=== PATIENT | male | born 1970 | race Caucasian/White ===

== ENCOUNTER → 2016-12-29 | Outpatient (CLI) | payer OTHER ==
[~2016-12-29] MED LIST: BETA0.1C3 TOP; CLBCRM30 EXT; ENAL5TAB83 PO; LORA-741 PO; MINO100C22 PO; MONT1TAB3 PO; NRN600 PO; PRED10TA PO; RTN100 PO; SILD50TA PO; SUMA50TA15 PO; TRMCR130WC TOP; TRV PO; WLLSR/300 PO; [UNRECOGNIZED DRUG - OTHER] TOP
== END | disposition home or self-care (01) ==
LOC: C.RDSM 15:18
PROVIDERS: ATTEND Physical Medicine & Rehabilitation Sports Medicine
DX: M25.552 Pain in left hip (principal)

== ENCOUNTER → 2017-05-25 | Outpatient (CLI) | payer OTHER | END | disposition home or self-care (01) | LOC: C.RDSM 13:25 | PROVIDERS: ATTEND Physical Medicine & Rehabilitation Sports Medicine | DX: M25.551 Pain in right hip (principal) ==

== ENCOUNTER → 2018-01-13 | Outpatient (CLI) | payer OTHER | LOC: C.LABSPEC 17:40 | PROVIDERS: ATTEND Nurse Practitioner Adult Health | DX: N50.819 Testicular pain, unspecified (principal) ==

== ENCOUNTER → 2018-02-22 | Outpatient (CLI) | payer OTHER | END | disposition home or self-care (01) | LOC: C.RDSM 10:02 | PROVIDERS: ATTEND Physical Medicine & Rehabilitation Sports Medicine | DX: M87.051 Idiopathic aseptic necrosis of right femur (principal); Z96.641 Presence of right artificial hip joint; M25.512 Pain in left shoulder ==

== ENCOUNTER 2022-03-04 17:17 | Inpatient (IN) ==
[2022-03-04] MEDS ORDERED: FAMOTIDINE 20MG IV PUSH 20 MG/5 ML SYR IV STA (17:50)
[2022-03-04] MEDS ORDERED: PANTOprazole 40 MG in SYRINGE 0 ML IV ONE (17:50)
[2022-03-04] MEDS ORDERED: SODIUM CHLORIDE 0.9% 1000ML 500 ML IV ONE (17:50)
--- NOTE | 2022-03-04 18:09 | Emergency Department Note ---
Impression & Plan GIB (gastrointestinal bleeding), Anemia, Thrombocytopenia ED Provider Note NAME: MELANIA ZEPEDA AGE: 51 SEX: M : 1970 ARRIVES VIA: Walk-In INFORMANT: Patient, ED PROVIDER(S): Stuart Sarmiento DO CHIEF COMPLAINT: GI bleeding HPI: The patient is a 51-year-old male who presented to the emergency department for an evaluation of GI bleeding. The patient has a history of watermelon stomach. He does take medications for stomach acid. He is also noticed black stool and maroon stool recently. He is been having shortness of breath and generalized weakness. He did have a blood transfusion at [facility] yesterday. He states at that time his hemoglobin was already very low. He is noticed ongoing symptoms. He has been compliant with all of his usual medications. He denies having any chest pain. He denies having any recent trauma. He also has a history of HIV positivity as well as thrombocytopenia. He also has a history of lymphoma. He is receiving chemotherapy and has a port in his right chest. The patient states his symptoms are moderate. He is also noticed some loose bowel movements as well. ROS: See above HPI for pertinent positives & negatives. A total of 10 systems reviewed and were otherwise negative. PAST MEDICAL HISTORY: See Below PAST SURGICAL HISTORY: See Below FAMILY HISTORY: See Below SOCIAL HISTORY: See Below HOME MEDICATIONS: See Below ALLERGIES: See Below VITALS: See Below PHYSICAL EXAMINATION: GENERAL: Patient is awake alert in no acute distress patient is resting comfortably and showing no signs of anxiety EYES: The conjunctivae are clear. The pupils are round and reactive. EARS, NOSE, MOUTH AND THROAT: The nose is without any evidence of any deformity. Mucous membranes are moist. Tongue is midline. NECK: The neck is nontender and supple. RESPIRATORY: Normal respiratory effort is noted there is no evidence of wheezing rhonchi or rales CARDIOVASCULAR: Tachycardic rate with regular rhythm was noted. No definite murmur was noted auscultation. GASTROINTESTINAL: The abdomen was mildly distended and diffusely tender. There is no guarding rigidity. MUSCULOSKELETAL/EXTREMITIES: There is no evidence of gross deformity full range of motion is noted in the hips and shoulders. SKIN: The skin is warm and dry. Trace pedal edema was noted bilaterally. NEUROLOGIC: Patient is awake alert and oriented x3 MEDICAL DECISION MAKING: The patient is a 51-year-old male has a history of lymphoma as well as thro mbocytopenia and GI bleeding. The patient presented to the emergency department because of generalized weakness. He was tachycardic and had borderline hypotension. The patient was noted to have severe anemia. I discussed the patient's laboratory and radiographic studies with him. He was also found to have thrombocytopenia. He was treated with IV fluids as well as blood transfusion ordered in the emergency department. Blood transfusion was difficult to obtain given the patient's type and cross. I discussed patient's condition with the on-call [facility] hospitalist group. They have agreed to evaluate the patient in the emergency department for further management and disposition. Triage Nursing notes reviewed. Prior medical records reviewed Vital Signs: reviewed and remarkable for tachycardia and intermittent hypotension. Differential diagnosis: Infection, dehydration, metabolic abnormality, hypo/hyperglycemia, electrolyte disturbance, anemia, hypoxia, cardiac sources, intracerebral event, toxicologic, neurologic, as well as other pathologies. ER treatment provided: See below Diagnostics interpreted by me: ECG: EKG was obtained in the emergency department. My interpretation is sinus tachycardia at 112 bpm. There is no ectopy. There is no acute ST segment abnormalities noted. No previous tracing was available. Cardiac Monitoring: An order was placed for continuous cardiac monitoring. The monitor shows a rate of 111 bpm with sinus tachycardia. Laboratory studies: As stated above and show below. Imaging studies: See below Consultation(s): I discussed this case with Alexandra Cooper. I discussed this case with Dr Judd ED COURSE: Procedures: none Critical Care: I have personally spent greater than 45 minutes of critical care time in the direct management of this patient. This includes bedside care, interpretation of diagnostic studies, and testing, discussion with consultants, patient, and family members, and other required patient management activities. This 45 minutes is in excess of all separately billable procedures. Past Med/Surg History Medical History Anemia BLOOD TRANSFUSIONS>LAST 01/20/22 Anxiety and depression Asthma NO RECENT INHALER PRN USE Avascular necrosis of bone of left hip BPH (benign prostatic hyperplasia) Cervical radiculopathy Cervical stenosis of spinal canal Cirrhosis Diabetes mellitus, type 2 Fatty liver GAVE (gastric antral vascular ectasia) GERD (gastroesophageal reflux disease) High cholesterol History of COVID-19 11/2021>HOSPITALIZED AT [facility] FOR NON-COVID SYMPTOMS HIV (human immunodeficiency virus infection) Hodgkin lymphoma Hx of bladder cancer Hydrocele Hypercholesterolemia Hypertension Lumbar facet joint syndrome Lumbar radiculopathy Migraine Neuropathy Portal hypertensive gastropathy Psoriasis Sacroiliitis Spleen enlarged Thrombocytopenia Surgical History H/O lymph node biopsy History of bilateral carpal tunnel release History of bladder surgery BLADDER TUMOR REMOVED History of bone marrow biopsy History of cholecystectomy History of colonoscopy History of cystoscopy History of esophagogastroduodenoscopy (EGD) History of right hip replacement History of vascular access device POWER PORT FOR CHEMO TX (CURRENT TX, SCHEDULED 01/28/22) Family History Mother Diabetes Lung disease Hypertension Father Gout Hypertension Brother Hypertension Other No family history of adverse response to anesthesia Social History Smoking Status: Former smoker Tobacco Type: Cigarettes Age Started Using Tobacco: 13; Age Quit Using Tobacco: 45; Years Smoked: 1; Cigarettes Per Day: 1 ppd; Smoking End Date: 2015; Second Hand Exposure: Yes ( A CHILD); Hx Alcohol Use: No Hx Substance Use: Yes Substance Use Type Other:: Has previously overdosed on opioid medications Preferred Language: Sami Communication Ability: Effective Visual Impairment: No Limitations Hearing Ability: Normal Integration Specialist Required: No Beliefs That Will Affect Care: None marital status: single marital status details: homosexual Current Living Situation: Alone current occupational status: disabled Other Information That Helps Us Care for You: No Feels Safe at Home: Yes Safety Concerns: Feels Safe At This Time Assistive Devices: Cane, Glasses and Walker Allergies Allergies Allergy/AdvReac Type Severity Reaction Status Date / Time Penicillins Allergy Intermediate HIVES Verified 03/04/22 19:04 adhesive tape AdvReac Mild skin Verified 03/04/22 19:04 irritation Home Meds Home Medications Medication Instructions Recorded Confirmed atorvastatin 10 mg tablet (Lipitor) 10 mg PO QPM 04/06/19 03/04/22 betamethasone valerate 0.1 % 1 appln TOP DAILY PRN 04/06/19 03/04/22 topical cream clindamycin phosphate 1 % topical 1 appln TOP DAILY PRN 04/06/19 03/04/22 swab clobetasol 0.05 % shampoo 1 appln TOP DAILY PRN 04/06/19 03/04/22 clobetasol 0.05 % topical gel 1 appln TOP BID PRN 04/06/19 03/04/22 lisinopril 5 mg tablet 5 mg PO QAM 04/06/19 03/04/22 metformin 500 mg tablet 500 mg PO QAM tab 04/06/19 03/04/22 sertraline 100 mg tablet (Zoloft) 100 mg PO QAM 04/06/19 03/04/22 medical marijuana 1 dose PO UD PRN 06/19/20 03/04/22 dolutegravir 50 mg-lamivudine 300 1 tab PO QAM 03/15/21 03/04/22 mg tablet (Dovato) pantoprazole 40 mg tablet,delayed 40 mg PO BID tab 03/15/21 03/04/22 release (Protonix) acyclovir 400 mg tablet 400 mg PO BID 01/23/22 03/04/22 albuterol sulfate 90 mcg/actuation 2 inh INHALATION QID PRN 01/23/22 03/04/22 aerosol inhaler oxybutynin chloride 10 mg 10 mg PO AMPM 01/23/22 03/04/22 tablet,extended release 24 hr ascorbic acid (vitamin C) 500 mg 500 mg PO DAILY 03/04/22 03/04/22 tablet (Vitamin C) azithromycin 500 mg tablet 500 mg PO DAILY 03/04/22 03/04/22 folic acid 1 mg tablet 1 mg PO DAILY 03/04/22 03/04/22 gabapentin 600 mg tablet 600 mg PO TID 03/04/22 03/04/22 ipratropium 0.5 mg-albuterol 3 mg 0 ml INHALATION QAM 03/04/22 03/04/22 (2.5 mg base)/3 mL nebulization soln magnesium 250 mg tablet 250 mg PO DAILY 03/04/22 03/04/22 metformin 500 mg tablet 1,000 mg PO QPM 03/04/22 03/04/22 ondansetron HCl 8 mg tablet 8 mg PO BID PRN 03/04/22 03/04/22 Results & Data (ED) Vital Signs Vital Signs - 24 hr 03/04/22 17:20 03/04/22 18:00 03/04/22 18:03 Temperature 37.0 C Temperature Source Oral Pulse Rate 120 H 123 H Pulse Rate [Apical] Pulse Rhythm Regular Respiratory Rate 16 20 Respiratory Effort / Characteristics Respiratory Pattern Blood Pressure 116/59 L Blood Pressure [Right Arm] 111/48 L Blood Pressure Mean 78 Blood Pressure Mean [Right Arm] 69 Blood Pressure Position [Right Arm] Pulse Oximetry 99 98 Oxygen Delivery Method Room Air Room Air Sepsis Recent Fever Within 48 Hours No Sepsis New/Unexplained Change in Mental Status No Sepsis Action Taken by Nursing No Action Required 03/04/22 19:06 Temperature Temperature Source Pulse Rate Pulse Rate [Apical] 107 H Pulse Rhythm Respiratory Rate 21 Respiratory Effort / Characteristics Non-Labored Respiratory Pattern Regular Blood Pressure Blood Pressure [Right Arm] 115/54 L Blood Pressure Mean Blood Pressure Mean [Right Arm] 74 Blood Pressure Position [Right Arm] Lying Pulse Oximetry 98 Oxygen Delivery Method Sepsis Recent Fever Within 48 Hours Sepsis New/Unexplained Change in Mental Status Sepsis Action Taken by [facility] Medications Current Medication List: was personally reviewed by me Laboratory Data Attestation: I reviewed the patient's lab results. Result diagrams: 03/04/22 17:49 03/04/22 17:49 Lab Results 03/04/22 03/04/22 03/04/22 Range/Units 17:49 17:49 17:49 WBC 2.72 L (4.8-10.8) K/uL RBC 1.81 L (4.7-6.1) M/uL Hgb 5.6 L* (14.0-18.0) g/dL Hct 16.6 L* (42-52) % MCV 91.7 (80-100) fL MCH 30.9 (25-34) pg MCHC 33.7 (32-36) g/dL RDW Std Deviation 56.9 H (36.4-46.3) fL RDW Coeff of Valentin 17.7 H (11.5-14.5) % Plt Count 52 L (130-400) K/uL MPV 10.7 H (7.4-10.4) fL Absolute Nucleated RBC 0.05 H (0-0) K/uL Nucleated RBC % (auto) 1.7 % Neutrophils % (Manual) 59.2 % Lymphocytes % (Manual) 21.7 % Monocytes % (Manual) 8.7 % Eosinophils % (Manual) 3.5 % Basophils % (Manual) 1.7 % Metamyelocytes % (Man) 2.6 % Myelocytes % (Man) 2.6 % Neutrophils # (Manual) 1.61 (1.4-6.5) K/uL Total Absolute Neuts 1.61 (1.4-6.5) K/uL Lymphocytes # (Manual) 0.59 L (1.2-3.4) K/uL Total Abs Lymphocytes 0.59 L (1.2-3.4) K/uL Monocytes # (Manual) 0.24 (0.11-0.59) K/uL Eosinophils # (Manual) 0.10 (0-0.5) K/uL Basophils # (Manual) 0.05 (0-0.2) K/uL Metamyelocytes # (Man) 0.07 H (0-0) K/uL Myelocytes # (Manual) 0.07 H (0-0) K/uL Toxic Granulation 1+ Platelet Estimate Decreased L (Normal) Tear Drop Cells 1+ PT 14.0 H (9.0-12.0) Seconds INR 1.3 H (0.9-1.1) APTT 31.3 H (21.0-31.0) Seconds PTT Ratio 1.1 Sodium (136-145) mmol/L Potassium (3.5-5.1) mmol/L Chloride (98-107) mmol/L Carbon Dioxide (21-32) mmol/L Anion Gap (3-11) BUN (6-23) mg/dl Creatinine (0.6-1.4) mg/dl Est Cr Clr Drug Dosing ml/min Est GFR ( Amer) ml/min Est GFR (Non-Af Amer) ml/min BUN/Creatinine Ratio (10-20) Glucose (70-99(Fasting)) mg/dl Calcium (8.5-10.1) mg/dl Magnesium (1.7-2.4) mg/dl Total Bilirubin (0.2-1.0) mg/dl AST (13-39) U/L ALT (7-52) U/L Alkaline Phosphatase (34-104) U/L Troponin I (0-0.04) ng/ml Total Protein (6.0-8.3) gm/dl Albumin (3.4-5.0) gm/dl Globulin (2.5-4.0) gm/dl Albumin/Globulin Ratio (0.9-2) TSH (0.300-4.500) uIu/ml Urine Color Urine Appearance (Clear) Urine pH (4.5-7.5) Ur Specific [place] (1.000-1.030) Urine Protein (Negative) Urine Glucose (UA) (Negative) Urine Ketones (Negative) Urine Blood (Negative) Urine Nitrite (Negative) Urine Bilirubin (Negative) Urine Urobilinogen (Negative) Ur Leukocyte Esterase (Negative) Urine WBC (Auto) (0-5) /hpf Urine RBC (Auto) (0-4) /hpf U Hyaline Cast (Auto) (0-5) /lpf U Epithel Cells (Auto) (0-5) /lpf Urine Bacteria (Auto) (Negative) SARS-CoV-2, RNA, NAAT (NEGATIVE) Blood Type O Positive Blood Type Recheck Antibody Screen NEGATIVE Crossmatch See Detail 03/04/22 03/04/22 03/04/22 Range/Units 17:49 17:49 17:49 WBC (4.8-10.8) K/uL RBC (4.7-6.1) M/uL Hgb (14.0-18.0) g/dL Hct (42-52) % MCV (80-100) fL MCH (25-34) pg MCHC (32-36) g/dL RDW Std Deviation (36.4-46.3) fL RDW Coeff of Valentin (11.5-14.5) % Plt Count (130-400) K/uL MPV (7.4-10.4) fL Absolute Nucleated RBC (0-0) K/uL Nucleated RBC % (auto) % Neutrophils % (Manual) % Lymphocytes % (Manual) % Monocytes % (Manual) % Eosinophils % (Manual) % Basophils % (Manual) % Metamyelocytes % (Man) % Myelocytes % (Man) % Neutrophils # (Manual) (1.4-6.5) K/uL Total Absolute Neuts (1.4-6.5) K/uL Lymphocytes # (Manual) (1.2-3.4) K/uL Total Abs Lymphocytes (1.2-3.4) K/uL Monocytes # (Manual) (0.11-0.59) K/uL Eosinophils # (Manual) (0-0.5) K/uL Basophils # (Manual) (0-0.2) K/uL Metamyelocytes # (Man) (0-0) K/uL Myelocytes # (Manual) (0-0) K/uL Toxic Granulation Platelet Estimate (Normal) Tear Drop Cells PT (9.0-12.0) Seconds INR (0.9-1.1) APTT (21.0-31.0) Seconds PTT Ratio Sodium 137 (136-145) mmol/L Potassium 4.0 (3.5-5.1) mmol/L Chloride 109 H (98-107) mmol/L Carbon Dioxide 22 (21-32) mmol/L Anion Gap 6 (3-11) BUN 15 (6-23) mg/dl Creatinine 0.98 (0.6-1.4) mg/dl Est Cr Clr Drug Dosing 93.1 ml/min Est GFR ( Amer) 101.6 ml/min Est GFR (Non-Af Amer) 87.7 ml/min BUN/Creatinine Ratio 15.3 (10-20) Glucose 152 H (70-99(Fasting)) mg/dl Calcium 7.6 L (8.5-10.1) mg/dl Magnesium 1.6 L (1.7-2.4) mg/dl Total Bilirubin 1.1 H (0.2-1.0) mg/dl AST 18 (13-39) U/L ALT 14 (7-52) U/L Alkaline Phosphatase 80 (34-104) U/L Troponin I < 0.03 (0-0.04) ng/ml Total Protein 4.3 L (6.0-8.3) gm/dl Albumin 2.8 L (3.4-5.0) gm/dl Globulin 1.5 L (2.5-4.0) gm/dl Albumin/Globulin Ratio 1.9 (0.9-2) TSH 2.428 (0.300-4.500) uIu/ml Urine Color Urine Appearance (Clear) Urine pH (4.5-7.5) Ur Specific [place] (1.000-1.030) Urine Protein (Negative) Urine Glucose (UA) (Negative) Urine Ketones (Negative) Urine Blood (Negative) Urine Nitrite (Negative) Urine Bilirubin (Negative) Urine Urobilinogen (Negative) Ur Leukocyte Esterase (Negative) Urine WBC (Auto) (0-5) /hpf Urine RBC (Auto) (0-4) /hpf U Hyaline Cast (Auto) (0-5) /lpf U Epithel Cells (Auto) (0-5) /lpf Urine Bacteria (Auto) (Negative) SARS-CoV-2, RNA, NAAT (NEGATIVE) Blood Type Blood Type Recheck O Positive Antibody Screen Crossmatch 03/04/22 03/04/22 Range/Units 18:29 18:48 WBC (4.8-10.8) K/uL RBC (4.7-6.1) M/uL Hgb (14.0-18.0) g/dL Hct (42-52) % MCV (80-100) fL MCH (25-34) pg MCHC (32-36) g/dL RDW Std Deviation (36.4-46.3) fL RDW Coeff of Valentin (11.5-14.5) % Plt Count (130-400) K/uL MPV (7.4-10.4) fL Absolute Nucleated RBC (0-0) K/uL Nucleated RBC % (auto) % Neutrophils % (Manual) % Lymphocytes % (Manual) % Monocytes % (Manual) % Eosinophils % (Manual) % Basophils % (Manual) % Metamyelocytes % (Man) % Myelocytes % (Man) % Neutrophils # (Manual) (1.4-6.5) K/uL Total Absolute Neuts (1.4-6.5) K/uL Lymphocytes # (Manual) (1.2-3.4) K/uL Total Abs Lymphocytes (1.2-3.4) K/uL Monocytes # (Manual) (0.11-0.59) K/uL Eosinophils # (Manual) (0-0.5) K/uL Basophils # (Manual) (0-0.2) K/uL Metamyelocytes # (Man) (0-0) K/uL Myelocytes # (Manual) (0-0) K/uL Toxic Granulation Platelet Estimate (Normal) Tear Drop Cells PT (9.0-12.0) Seconds INR (0.9-1.1) APTT (21.0-31.0) Seconds PTT Ratio Sodium (136-145) mmol/L Potassium (3.5-5.1) mmol/L Chloride (98-107) mmol/L Carbon Dioxide (21-32) mmol/L Anion Gap (3-11) BUN (6-23) mg/dl Creatinine (0.6-1.4) mg/dl Est Cr Clr Drug Dosing ml/min Est GFR ( Amer) ml/min Est GFR (Non-Af Amer) ml/min BUN/Creatinine Ratio (10-20) Glucose (70-99(Fasting)) mg/dl Calcium (8.5-10.1) mg/dl Magnesium (1.7-2.4) mg/dl Total Bilirubin (0.2-1.0) mg/dl AST (13-39) U/L ALT (7-52) U/L Alkaline Phosphatase (34-104) U/L Troponin I (0-0.04) ng/ml Total Protein (6.0-8.3) gm/dl Albumin (3.4-5.0) gm/dl Globulin (2.5-4.0) gm/dl Albumin/Globulin Ratio (0.9-2) TSH (0.300-4.500) uIu/ml Urine Color Dark Yellow Urine Appearance Clear (Clear) Urine pH 5.5 (4.5-7.5) Ur Specific [place] 1.020 (1.000-1.030) Urine Protein Negative (Negative) Urine Glucose (UA) Negative (Negative) Urine Ketones Trace H (Negative) Urine Blood Negative (Negative) Urine Nitrite Negative (Negative) Urine Bilirubin Negative (Negative) Urine Urobilinogen Negative (Negative) Ur Leukocyte Esterase Trace H (Negative) Urine WBC (Auto) 1-5 (0-5) /hpf Urine RBC (Auto) 0-4 (0-4) /hpf U Hyaline Cast (Auto) 1-5 (0-5) /lpf U Epithel Cells (Auto) 0-5 (0-5) /lpf Urine Bacteria (Auto) Negative (Negative) SARS-CoV-2, RNA, NAAT NEGATIVE (NEGATIVE) Blood Type Blood Type Recheck Antibody Screen Crossmatch Administered Medications Octreotide Acetate 500 mcg/ (Dextrose) 105 mls @ 10.5 mls/hr IV .Q10H MARILYN Stop: 04/03/22 19:44 Last Admin: 03/04/22 20:33 Dose: 50 mcg/hr, 10.5 mls/hr Documented by: [id number] Pantoprazole Sodium 40 mg/ (Dextrose) 100 mls @ 20 mls/hr IV Q5H MARILYN Stop: 04/03/22 19:44 Last Admin: 03/04/22 20:28 Dose: 8 mg/hr, 20 mls/hr Documented by: [id number] Discontinued Medications Pantoprazole Sodium 40 mg/ (Syringe) 10 mls @ 5 mls/min IV NOW ONE Stop: 03/04/22 17:51 Last Admin: 03/04/22 18:24 Dose: 5 mls/min Documented by: [id number] Famotidine (Pepcid 20mg Iv Push) 20 mg in 5 mls @ 2.5 mls/min IV NOW STA Stop: 03/04/22 17:51 Last Admin: 03/04/22 18:24 Dose: 2.5 mls/min Documented by: [id number] Sodium Chloride (Nss 1000ml) 500 mls @ 999 mls/hr IV .Q31M ONE Stop: 03/04/22 18:20 Last Infusion: 03/04/22 18:45 Dose: 0 mls/hr Documented by: [id number] Admin: 03/04/22 18:05 Dose: 999 mls/hr Documented by: [id number] Octreotide Acetate (Octreotide Bolus From Bag) 50 mcg IV ONE ONE Stop: 03/04/22 19:46 Last Admin: 03/04/22 20:35 Dose: 50 mcg Documented by: [id number] Promethazine HCl (Promethazine 6.25 Mg/50.25 Ml Nss) Confirm Administered Dose 6.25 mg IV .STK-MED ONE Stop: 03/04/22 20:17 Last Admin: 03/04/22 20:21 Dose: 6.25 mg Documented by: [id number] Imaging Data Radiologist's Impression: Chest X-Ray 03/04/22 17:50 XR chest 1V portable CLINICAL HISTORY: weakness TECHNIQUE: Single frontal radiograph of the chest was obtained. Comparison: None available at the time of this dictation. FINDINGS: No lines and tubes are seen. The cardiomediastinal silhouette is normal. The lungs are clear. No evidence of pleural effusion or pneumothorax. IMPRESSION: No acute chest disease. ACT 112: Negative or not required by law. Electronically signed by: Alvarado Keith M.D. 03/04/2022 6:25 PM KUB X-Ray 03/04/22 17:50 XR KUB/Abdomen 1 view CLINICAL HISTORY: Pain, weakness TECHNIQUE: 1 view of the abdomen was obtained. Comparison: None available at the time of this dictation. FINDINGS: Lung bases are unremarkable. Right total hip arthroplasty is seen. The bowel gas pattern is nonobstructive. A moderate amount of stool is noted within the large bowel. IMPRESSION: Nonobstructive bowel gas pattern. ACT 112: Negative or not required by law. Electronically signed by: Alvarado Keith M.D. 03/04/2022 6:25 PM Discharge Plan Visit Data Chief Complaint: Shortness of Breath/Dyspnea Stated Complaint: SOB, FATIGUE, STOOL IN BLOOD, ED Provider: Stuart Sarmiento Discharge Problem: GIB (gastrointestinal bleeding), Anemia, Thrombocytopenia Patient Disposition: Admitted As Inpatient Discharge Instructions Interventions: ED Discharge Assessment Last Done: 03/04/22 20:43 Discharge Problem: GIB (gastrointestinal bleeding) Qualifiers: GI bleed type/associated pathology: unspecified gastrointestinal hemorrhage type Qualified Code(s): K92.2 - Gastrointestinal hemorrhage, unspecified Anemia Qualifiers: Anemia type: unspecified type Qualified Code(s): D64.9 - Anemia, unspecified
[2022-03-04] MEDS ORDERED: SODIUM CHLORIDE 0.9% 250 ML IV PRN ×2 (18:10→19:33)
[2022-03-04 18:20] LABS: INR 1.3 (0.9-1.1); Partial Thromboplastin Ratio 1.1; Partial Thromboplastin Time 31.3 Seconds (21.0-31.0)
[2022-03-04 18:22] LABS: Troponin I < 0.03 ng/ml (0-0.04)
--- NOTE | 2022-03-04 18:26 | XRay Report ---
XR chest 1V portable CLINICAL HISTORY: weakness TECHNIQUE: Single frontal radiograph of the chest was obtained. Comparison: None available at the time of this dictation. FINDINGS: No lines and tubes are seen. The cardiomediastinal silhouette is normal. The lungs are clear. No evid ence of pleural effusion or pneumothorax. IMPRESSION: No acute chest disease. ACT 112: Negative or not required by law. Electronically signed by: Alvarado Keith M.D. 03/04/2022 6:25 PM
--- NOTE | 2022-03-04 18:26 | XRay Report ---
XR KUB/Abdomen 1 view CLINICAL HISTORY: Pain, weakness TECHNIQUE: 1 view of the abdomen was obtained. Comparison: None available at the time of this dictation. FINDINGS: Lung bases are unremarkable. Right total hip arthroplasty is seen. The bowel gas pattern is nonobstru ctive. A moderate amount of stool is noted within the large bowel. IMPRESSION: Nonobstructive bowel gas pattern. ACT 112: Negative or not required by law. Electronically signed by: Alvarado Keith M.D. 03/04/2022 6:25 PM
[2022-03-04 18:28] LABS: Alanine Aminotransferase 14 U/L (7-52); Albumin Globulin Ratio 1.9 (0.9-2); Albumin Level 2.8 gm/dl (3.4-5.0); Alkaline Phosphatase 80 U/L (34-104); Anion Gap 6 (3-11); Aspartate Aminotransferase 18 U/L (13-39); BUN Creatinine Ratio 15.3 (10-20); Bilirubin,Total 1.1 mg/dl (0.2-1.0); Blood Urea Nitrogen 15 mg/dl (6-23); Calcium 7.6 mg/dl (8.5-10.1); Carbon Dioxide 22 mmol/L (21-32); Chloride 109 mmol/L (98-107); Creatinine Clr Calc Pharmacy 93.1 ml/min; Est GFR (African American) 101.6 ml/min; Est GFR (Non-African American) 87.7 ml/min; Globulin 1.5 gm/dl (2.5-4.0); Glucose 152 mg/dl (70-99(Fasting)); Magnesium 1.6 mg/dl (1.7-2.4); Sodium 137 mmol/L (136-145); Total Protein 4.3 gm/dl (6.0-8.3)
[2022-03-04 18:36] LABS: ALC (manual) 0.59 K/uL (1.2-3.4); ANC (manual) 1.61 K/uL (1.4-6.5); Basophils # (manual) 0.05 K/uL (0-0.2); Basophils % (manual) 1.7 %; Eosinophils % (manual) 3.5 %; Hematocrit (blood only) 16.6 % (42-52); Hemoglobin 5.6 g/dL (14.0-18.0); Lymphocytes # (manual) 0.59 K/uL (1.2-3.4); Lymphocytes % (manual) 21.7 %; Mean Corpuscular Hemoglobin 30.9 pg (25-34); Mean Corpuscular Hgb Conc 33.7 g/dL (32-36); Mean Corpuscular Volume 91.7 fL (80-100); Mean Platelet Volume 10.7 fL (7.4-10.4); Metamyelocytes # (manual) 0.07 K/uL (0-0); Metamyelocytes % (manual) 2.6 %; Monocytes # (manual) 0.24 K/uL (0.11-0.59); Monocytes % (manual) 8.7 %; Myelocytes # (manual) 0.07 K/uL (0-0); Myelocytes % (manual) 2.6 %; Neutrophils # (manual) 1.61 K/uL (1.4-6.5); Neutrophils % (manual) 59.2 %; Nucleated RBC # (auto) 0.05 K/uL (0-0); Nucleated RBC % (auto) 1.7 %; Platelet Count 52 K/uL (130-400); Platelet Estimate Decreased (Normal); RDW Coefficient of Variation 17.7 % (11.5-14.5); RDW Standard Deviation 56.9 fL (36.4-46.3); Red Blood Count 1.81 M/uL (4.7-6.1); Tear Drop Cells 1+; Toxic Granulation 1+; White Blood Count 2.72 K/uL (4.8-10.8)
[2022-03-04 19:01] LABS: Appearance Urine Clear (Clear); Bacteria Urine Automated Negative (Negative); Bilirubin Urine Negative (Negative); Blood Urine Negative (Negative); Color Urine Dark Yellow; Epithelial Cell Urine Auto 0-5 /lpf (0-5); Glucose Urine UA Negative (Negative); Ketones Urine Trace (Negative); Leukocyte Esterase Urine Trace (Negative); Nitrite Urine Negative (Negative); Protein Urine Negative (Negative); RBC Urine Automated 0-4 /hpf (0-4); Urobilinogen Urine Negative (Negative); pH Urine 5.5 (4.5-7.5)
[2022-03-04] MEDS ORDERED: PROMETHAZINE HCL 6.25 MG in SODIUM CHLORIDE 0.9% 50 ML IV PRN (19:30)
[2022-03-04] MEDS ORDERED: OCTREOTIDE ACETATE 50 MCG in SYRINGE 9.5 ML IV STA (19:35)
[2022-03-04] MEDS ORDERED: STAT IV STA (19:35)
[2022-03-04] MEDS ORDERED: OCTREOTIDE BOLUS FROM BAG IV ONE (19:45)
[2022-03-04] MEDS ORDERED: PROMETHAZINE 6.25 MG/50.25 ML NSS IV ONE (20:16)
[2022-03-04] MEDS: PANTOprazole 40 MG in DEXTROSE 5% 100 ML IV SCH (20:28)
[2022-03-04] MEDS: OCTREOTIDE ACETATE 500 MCG in DEXTROSE 5% 100 ML IV SCH (20:33)
--- NOTE | 2022-03-04 21:01 | History & Physical Report ---
Date of Service March 04, 2022 Assessment & Plan (1) GIB (gastrointestinal bleeding): (2) Acute blood loss anemia: (3) GAVE (gastric antral vascular ectasia): (4) Portal hypertensive gastropathy: (5) Thrombocytopenia: (6) Cirrhosis: Plan: Admit to telemetry Patient presenting from home with reports of generalized weakness and fatigue, melena Patient reports chronic anemia for the past 2 years intermittently requiring blood transfusions. Recently diagnosed with cirrhosis and underwent EGD on 01/29/2022 showing Gastric antral vascular ectasia with bleeding treated with argon plasma coagulation (APC), Portal hypertensive gastropathy with bleeding treated with argon plasma coagulation (APC). Patient reports having weekly CBCs and yesterday had a hemoglobin of 5.1. Patient reports he received 2 unit PRBC and iron infusion at [facility]. Follows with Dr. Donovan with [facility] In the ED, Hgb 5.6, patient mildly tachycardic, BP stable. Platelets 52K-no indication for transfusion at this time Received IV famotidine, IV Protonix in the ED Transfuse 2 unit PRBC, placed to on hold. Per blood bank, they discussed patient's transfusion history with [facility]. Patient has been receiving irradiated blood product. Dr. Paz discussed with Dr. Cardenas -recommends PPI and octreotide drips. N.p.o. after midnight. EGD tomorrow, possible transfer to tertiary care center for evaluation for TIPS procedure (7) Prolonged QT interval: Plan: Borderline, QTC 499 Daily EKG (8) Hodgkin lymphoma: Plan: Diagnosed August 2021, completed chemotherapy on 02/25/2022 per patient Follows with Dr. Perez in [place] Continue prophylactic azithromycin and acyclovir (9) HIV (human immunodeficiency virus infection): Plan: Follows with Dr. Ramirez with [facility] Continue Dovato (10) Diabetes mellitus, type 2: Plan: Unknown HgbA1c Hold oral agents, utilize NovoLog per protocol while hospitalized A1c with a.m. labs (11) Hypertension: Plan: Hold lisinopril due to borderline low BPs (12) DVT prophylaxis: Plan: SCDs due to GI bleeding History of Present Illness Chief Complaint: Weakness, fatigue Primary Care Provider: Candida Estrella DO 51-year-old male with PMH HIV, Hodgkin's lymphoma, avascular necrosis, bladder cancer s/p tumor resection, cirrhosis, portal hypertensive gastropathy, GAVE, and other problems listed below who presents to the ED for evaluation of weakness and fatigue. Patient reports a history of requiring blood transfusions over the past 2 years. Diagnosed with Hodgkin's lymphoma August 2021 and completed chemotherapy on 02/25/2022. Patient also recently diagnosed with cirrhosis and underwent EGD on 01/29/2022 showing Gastric antral vascular ectasia with bleeding treated with argon plasma coagulation (APC), Portal hypertensive gastropathy with bleeding treated with argon plasma coagulation (APC). Patient reports having weekly CBCs and yesterday had a hemoglobin of 5.1. Patient reports he received 2 unit PRBC and iron infusion at [facility]. Patient reports that for the past 1 month he has been having melena and dark tarry stools. Today, patient reports multiple episodes of diarrhea with maroon- colored stool and blood clots at times. He reports epigastric abdominal pain and nausea. No vomiting. Denies chest pain or shortness of breath. No light headedness, dizziness, diaphoresis, syncopal events. Denies any other recent illnesses, fevers, chills. No urinary symptoms. In the ED, labs show Hgb 5.6. Patient is mildly tachycardic, otherwise hemodynamically stable. Patient was given IV famotidine, IV Protonix 40 mg, IVF. He was also typed and crossed for blood. Allergies Allergy/AdvReac Type Severity Reaction Status Date / Time Penicillins Allergy Intermediate HIVES Verified 03/04/22 19:04 adhesive tape AdvReac Mild skin Verified 03/04/22 19:04 irritation Home Medications Medication Instructions Recorded Confirmed Type atorvastatin 10 mg tablet (Lipitor) 10 mg PO QPM 04/06/19 03/04/22 History betamethasone valerate 0.1 % 1 appln TOP DAILY PRN 04/06/19 03/04/22 History topical cream clindamycin phosphate 1 % topical 1 appln TOP DAILY PRN 04/06/19 03/04/22 History swab clobetasol 0.05 % shampoo 1 appln TOP DAILY PRN 04/06/19 03/04/22 History clobetasol 0.05 % topical gel 1 appln TOP BID PRN 04/06/19 03/04/22 History lisinopril 5 mg tablet 5 mg PO QAM 04/06/19 03/04/22 History metformin 500 mg tablet 500 mg PO QAM tab 04/06/19 03/04/22 History sertraline 100 mg tablet (Zoloft) 100 mg PO QAM 04/06/19 03/04/22 History medical marijuana 1 dose PO UD PRN 06/19/20 03/04/22 History dolutegravir 50 mg-lamivudine 300 1 tab PO QAM 03/15/21 03/04/22 History mg tablet (Dovato) pantoprazole 40 mg tablet,delayed 40 mg PO BID tab 03/15/21 03/04/22 History release (Protonix) acyclovir 400 mg tablet 400 mg PO BID 01/23/22 03/04/22 History albuterol sulfate 90 mcg/actuation 2 inh INHALATION QID PRN 01/23/22 03/04/22 History aerosol inhaler oxybutynin chloride 10 mg 10 mg PO AMPM 01/23/22 03/04/22 History tablet,extended release 24 hr ascorbic acid (vitamin C) 500 mg 500 mg PO DAILY 03/04/22 03/04/22 History tablet (Vitamin C) azithromycin 500 mg tablet 500 mg PO DAILY 03/04/22 03/04/22 History folic acid 1 mg tablet 1 mg PO DAILY 03/04/22 03/04/22 History gabapentin 600 mg tablet 600 mg PO TID 03/04/22 03/04/22 History ipratropium 0.5 mg-albuterol 3 mg 0 ml INHALATION QAM 03/04/22 03/04/22 History (2.5 mg base)/3 mL nebulization soln magnesium 250 mg tablet 250 mg PO DAILY 03/04/22 03/04/22 History metformin 500 mg tablet 1,000 mg PO QPM 03/04/22 03/04/22 History ondansetron HCl 8 mg tablet 8 mg PO BID PRN 03/04/22 03/04/22 History Past Med/Surg History Medical History Anemia BLOOD TRANSFUSIONS>LAST 01/20/22 Anxiety and depression Asthma NO RECENT INHALER PRN USE Avascular necrosis of bone of left hip BPH (benign prostatic hyperplasia) Cervical radiculopathy Cervical stenosis of spinal canal Cirrhosis Diabetes mellitus, type 2 Fatty liver GAVE (gastric antral vascular ectasia) GERD (gastroesophageal reflux disease) High cholesterol History of COVID-19 11/2021>HOSPITALIZED AT [facility] FOR NON-COVID SYMPTOMS HIV (human immunodeficiency virus infection) Hodgkin lymphoma Hx of bladder cancer Hydrocele Hypercholesterolemia Hypertension Lumbar facet joint syndrome Lumbar radiculopathy Migraine Neuropathy Portal hypertensive gastropathy Psoriasis Sacroiliitis Spleen enlarged Thrombocytopenia Surgical History H/O lymph node biopsy History of bilateral carpal tunnel release History of bladder surgery BLADDER TUMOR REMOVED History of bone marrow biopsy History of cholecystectomy History of colonoscopy History of cystoscopy History of esophagogastroduodenoscopy (EGD) History of right hip replacement History of vascular access device POWER PORT FOR CHEMO TX (CURRENT TX, SCHEDULED 01/28/22) Family History Mother Diabetes Lung disease Hypertension Father Gout Hypertension Brother Hypertension Other No family history of adverse response to anesthesia Social History Smoking Status: Former smoker Tobacco Type: Cigarettes Age Started Using Tobacco: 13; Age Quit Using Tobacco: 45; Years Smoked: 1; Cigarettes Per Day: 1 ppd; Smoking End Date: 2015; Second Hand Exposure: Yes ( A CHILD); Hx Alcohol Use: No Hx Substance Use: Yes Substance Use Type Other:: Has previously overdosed on opioid medications Preferred Language: Slovenian Communication Ability: Effective Visual Impairment: No Limitations Hearing Ability: Normal Gun Mechanic Required: No Beliefs That Will Affect Care: None marital status: single marital status details: homosexual Current Living Situation: Alone current occupational status: disabled Other Information That Helps Us Care for You: No Feels Safe at Home: Yes Safety Concerns: Feels Safe At This Time Assistive Devices: Cane, Glasses and Walker Review of Systems Review of Systems: ROS per HPI, all other systems reviewed and negative Physical Exam Constitutional: WD/WN, vitals as above Eyes: PERRL, conjunctivae normal, anicteric sclerae ENMT: external ear and nose normal, oropharynx normal Respiratory: normal respiratory effort, lungs clear to auscultation Cardiovascular: Rate/Rhythm: regular rhythm and + tachycardic Vessels: normal peripheral pulses Extremities: + edema (+ 1 Edema BLE) Gastrointestinal (Abdomen): Inspection/Auscultation: + abdomen distended and normal bowel sounds Percussion/Palpation: + abdomen tender (Epigastric, RUQ) and abdomen soft; no hepatosplenomegaly Musculoskeletal: no cyanosis or clubbing, extremities motor strength 5/5 Skin: no rashes, warm and dry Neurologic: PERRL, EOMI, accommodation nl, no face palsy, no dysarthria Psychiatric: A+Ox3, euthymic affect Results & Data Results & Data ([facility]) Vital Signs (Past 12 Hours) Vital Signs Temp Pulse Pulse Resp BP BP Pulse Ox 03/04/22 19:06 107 H 21 115/54 L 98 03/04/22 18:03 111/48 L 03/04/22 18:00 123 H 20 98 03/04/22 17:20 37.0 C 120 H 16 116/59 L 99 Laboratory Results Short CBC 03/04/22 Range/Units 17:49 WBC 2.72 L (4.8-10.8) K/uL Hgb 5.6 L* (14.0-18.0) g/dL Hct 16.6 L* (42-52) % Plt Count 52 L (130-400) K/uL BMP 03/04/22 17:49 Sodium 137 Potassium 4.0 Chloride 109 H Carbon Dioxide 22 BUN 15 Creatinine 0.98 Glucose 152 H Calcium 7.6 L Cardiac Enzymes 03/04/22 Range/Units 17:49 Troponin I < 0.03 (0-0.04) ng/ml Liver Function 03/04/22 Range/Units 17:49 Total Bilirubin 1.1 H (0.2-1.0) mg/dl AST 18 (13-39) U/L ALT 14 (7-52) U/L Alkaline Phosphatase 80 (34-104) U/L Albumin 2.8 L (3.4-5.0) gm/dl Urine 03/04/22 Range/Units 18:48 Urine Color Dark Yellow Urine Appearance Clear (Clear) Urine pH 5.5 (4.5-7.5) Ur Specific [place] 1.020 (1.000-1.030) Urine Protein Negative (Negative) Urine Glucose (UA) Negative (Negative) Diagnostic Findings Chest X-Ray 03/04/22 17:50 XR chest 1V portable CLINICAL HISTORY: weakness TECHNIQUE: Single frontal radiograph of the chest was obtained. Comparison: None available at the time of this dictation. FINDINGS: No lines and tubes are seen. The cardiomediastinal silhouette is normal. The lungs are clear. No evidence of pleural effusion or pneumothorax. IMPRESSION: No acute chest disease. ACT 112: Negative or not required by law. Electronically signed by: Alvarado Keith M.D. 03/04/2022 6:25 PM KUB X-Ray 03/04/22 17:50 XR KUB/Abdomen 1 view CLINICAL HISTORY: Pain, weakness TECHNIQUE: 1 view of the abdomen was obtained. Comparison: None available at the time of this dictation. FINDINGS: Lung bases are unremarkable. Right total hip arthroplasty is seen. The bowel gas pattern is nonobstructive. A moderate amount of stool is noted within the large bowel. IMPRESSION: Nonobstructive bowel gas pattern. ACT 112: Negative or not required by law. Electronically signed by: Alvarado Keith M.D. 03/04/2022 6:25 PM Code Status & VTE Plan VTE Prophylaxis Plan VTE Prophylaxis will be ordered: Yes (1) GIB (gastrointestinal bleeding) GI bleed type/associated pathology: unspecified gastrointestinal hemorrhage type Qualified Code(s): K92.2 - Gastrointestinal hemorrhage, unspecified
[2022-03-04] MEDS ORDERED: GLUCOSE 40% GEL 15 GM TUBE PO PRN (21:15)
[2022-03-04] MEDS ORDERED: DEXTROSE 50% 50 ML SYRINGE IV PRN (21:15)
[2022-03-04] MEDS ORDERED: CARBOHYDRATES FOR HYPOGLYCEMIA PO PRN (21:15)
[2022-03-04] MEDS ORDERED: GLUCOSE 10 TABS/TUBE PO PRN (21:15)
[2022-03-04] MEDS ORDERED: ACETAMINOPHEN 325 MG TAB PO PRN (21:15)
[2022-03-04] MEDS ORDERED: GLUCAGON FOR INJ 1 MG VIAL SQ PRN (21:15)
[2022-03-04] MEDS: ATORVASTATIN 10 MG TAB PO SCH (22:57)
[2022-03-04] MEDS: ACYCLOVIR 400 MG TAB PO SCH (22:57)
[2022-03-04] MEDS: OXYBUTYNIN CHLORIDE XL 5 MG TABCR PO SCH (22:57)
[2022-03-04] MEDS: GABAPENTIN 600 MG TAB PO SCH (22:57)
[2022-03-04] MEDS: INSULIN ASPART PER UNIT SC SCH (23:28)
[2022-03-05] MEDS: cefTRIAXone SODIUM 2,000 MG in DEXTROSE 5% 50 ML IV SCH (00:44)
[2022-03-05] MEDS: PANTOprazole 40 MG in DEXTROSE 5% 100 ML IV SCH ×4 (00:52→19:55)
[2022-03-05] MEDS ORDERED: HEPARIN 100 UNIT/ML 5ML FLUSH FLUSH PRN (01:09)
[2022-03-05] MEDS: rOPINIRole HCL 0.25 MG TABLET PO PRN ×2 (01:13→20:37)
[2022-03-05] MEDS: OCTREOTIDE ACETATE 500 MCG in DEXTROSE 5% 100 ML IV SCH ×2 (04:36→18:05)
[2022-03-05] MEDS: INSULIN ASPART PER UNIT SC SCH ×3 (06:54→18:27)
[2022-03-05] MEDS ORDERED: SODIUM CHLORIDE 0.9% 250 ML IV PRN (08:18)
[2022-03-05 08:19] LABS: Hematocrit (blood only) 18.8 % (42-52); Hemoglobin 6.6 g/dL (14.0-18.0); Mean Corpuscular Hemoglobin 32.4 pg (25-34); Mean Corpuscular Hgb Conc 35.1 g/dL (32-36); Mean Corpuscular Volume 92.2 fL (80-100); Mean Platelet Volume 11.1 fL (7.4-10.4); Nucleated RBC % (auto) 4.9 %; Platelet Count 46 K/uL (130-400); RDW Coefficient of Variation 16.2 % (11.5-14.5); RDW Standard Deviation 52.1 fL (36.4-46.3); Red Blood Count 2.04 M/uL (4.7-6.1); White Blood Count 2.07 K/uL (4.8-10.8)
[2022-03-05] MEDS: ACYCLOVIR 400 MG TAB PO SCH ×2 (08:25→20:37)
[2022-03-05] MEDS: AZITHROMYCIN 250 MG TAB PO SCH (08:25)
[2022-03-05] MEDS: FOLIC ACID 1 MG TAB PO SCH (08:26)
[2022-03-05] MEDS: MAGNESIUM OXIDE 400 MG TAB PO SCH (08:26)
[2022-03-05] MEDS: GABAPENTIN 600 MG TAB PO SCH ×3 (08:26→20:37)
[2022-03-05] MEDS: DOVATO PO SCH (08:27)
[2022-03-05] MEDS: SERTRALINE HCL 100 MG TABLET PO SCH (08:27)
[2022-03-05] MEDS: OXYBUTYNIN CHLORIDE XL 5 MG TABCR PO SCH ×2 (08:33→20:38)
[2022-03-05 08:45] LABS: BUN Creatinine Ratio 13.3 (10-20); Calcium 7.6 mg/dl (8.5-10.1); Est GFR (African American) 93.5 ml/min; Est GFR (Non-African American) 80.7 ml/min; Potassium 4.2 mmol/L (3.5-5.1)
[2022-03-05 09:31] LABS: Estimated Average Glucose 111 mg/dl; Hemoglobin A1C 5.5 % (4.5-5.6)
--- NOTE | 2022-03-05 15:44 | Hospitalist Progress Note ---
Date of Service March 05, 2022 Assessment & Plan (1) GIB (gastrointestinal bleeding): (2) Acute blood loss anemia: (3) GAVE (gastric antral vascular ectasia): (4) Portal hypertensive gastropathy: (5) Thrombocytopenia: (6) Cirrhosis: Plan: Patient presenting from home with reports of generalized weakness and fatigue, bright red GI bleed Patient reports chronic anemia for the past 2 years intermittently requiring repeat blood transfusions. Last EGD on 01/29/2022 showing Gastric antral vascular ectasia with bleeding treated with argon plasma coagulation (APC), Portal hypertensive gastropathy with bleeding treated with argon plasma coagulation (APC). S/P 2 units PRBC yesterday at [facility] due to hemoglobin of 5.1. Hgb on admission 5.6 and platelet 52K Received a total of 3 units PRBC so far during the hospital stay ( 2 units last night and 1 unit this morning) Follows with Dr. Donovan with [facility] GI outpatient Gastro on board Continue IV famotidine, IV Protonix and octreotide case discussed with gastro Dr. Cardenas last night that plan to get an EGD later today Will keep NPO for now Might transfer to tertiary care center for evaluation for TIPS procedure base on EGD finding Will monitor H/H (7) Prolonged QT interval: Plan: Borderline, QTC 499 Will avoid QTC prolong med (8) Hodgkin lymphoma: Plan: Diagnosed August 2021, completed chemotherapy on 02/25/2022 per patient Follows with Dr. Perez in [place] Continue prophylactic azithromycin and acyclovir (9) HIV (human immunodeficiency virus infection): Plan: Follows with Dr. Ramirez with [facility] Continue Dovato (10) Diabetes mellitus, type 2: Plan: Most recent Hba1c 5.5 Hold oral agents, utilize NovoLog per protocol while hospitalized Continue monitor BS (11) Hypertension: Plan: Continue to lisinopril due to borderline low BPs (12) DVT prophylaxis: Plan: SCDs due to GI bleeding Admission and Anticipated Discharge Date Admission Date: March 04, 2022 Subjective Pt was seen and examined for GI bleed Lying in bed with no acute distress Pt said that he feels ok He said that he was having abdominal tenderness He continues to have bright red bleeding this morning Denies any chest pain, palpitation, diszziness and SOB Review of Systems Review of Systems: All systems reviewed & are unremarkable except as noted in Subjective Physical Exam Physical Exam: General- No acute distress Head- atraumatic Eyes- PERRL, EOMI, ENT- oropharynx clear Neck- supple, no JVD Lungs- clear to auscultation Heart- regular rhythm; no murmur Abdomen- normal bowel sounds, +tender Extremities- no calf tenderness, +trace edema Neuro- alert, oriented x 3; PERRL, EOMI; no facial palsy; no dysarthria Skin- warm & dry Results & Data Results & Data ([facility]) Vital Signs (Past 12 Hours) Vital Signs Temp Pulse Pulse Resp BP BP Pulse Ox 03/05/22 15:23 36.8 C 95 H 18 96 03/05/22 13:47 36.8 C 94 H 20 99/63 L 97 03/05/22 12:56 36.6 C 95 H 20 104/61 97 03/05/22 11:56 36.7 C 96 H 20 114/67 96 03/05/22 11:26 36.7 C 96 H 20 110/68 97 03/05/22 11:11 36.7 C 97 H 20 110/68 96 03/05/22 10:55 36.6 C 95 H 20 109/68 97 03/05/22 10:37 36.6 C 95 H 20 109/68 97 03/05/22 08:13 98/58 L 03/05/22 08:02 36.7 C 94 H 20 82/45 L 96 03/05/22 06:43 36.7 C 94 H 18 107/67 96 03/05/22 06:28 36.7 C 94 H 18 111/63 95 03/05/22 06:24 115 H 03/05/22 05:28 36.7 C 98 H 18 107/57 L 98 03/05/22 04:58 37.2 C 97 H 18 96/56 L 95 03/05/22 04:43 36.8 C 98 H 18 94/52 L 97 03/05/22 04:27 36.7 C 97 H 18 94/58 L 96 03/05/22 04:10 36.7 C 109 H 18 94/58 L 97 (1) GIB (gastrointestinal bleeding) GI bleed type/associated pathology: unspecified gastrointestinal hemorrhage type Qualified Code(s): K92.2 - Gastrointestinal hemorrhage, unspecified
--- NOTE | 2022-03-05 15:59 | History & Physical Report ---
Date of Service March 05, 2022 Assessment & Plan (1) GIB (gastrointestinal bleeding): GI bleed type/associated pathology: unspecified gastrointestinal hemorrhage type Qualified Code(s): K92.2 - Gastrointestinal hemorrhage, unspecified (2) Acute blood loss anemia: (3) Portal hypertensive gastropathy: (4) Cirrhosis of liver: Plan: Plan to proceed with EGD for control of bleeding. The recommended procedure was discussed with the patient, including the indications for examination and potential benefits, risks, alternatives, potential outcomes, and post procedure plans of care. All questions were addressed and answered, understanding was acknowledged, and consent was obtained Admission and Anticipated Discharge Date Admission Date: March 04, 2022 History of Present Illness Chief Complaint: Rectal Bleeding Primary Care Provider: Candida Estrella DO 51 year old man with refractory episodes of GI bleeding related to portal hypertensive gastropathy. Past history of hepatic cirrhosis with portal hypertension, blood loss anemia, small esophageal varices, splenomegaly, Hodgkins lymphoma, HIV, T2DM, bladder cancer, HTN, psoriatic arhtritis Allergies Allergy/AdvReac Type Severity Reaction Status Date / Time Penicillins Allergy Intermediate HIVES Verified 03/04/22 19:04 adhesive tape AdvReac Mild skin Verified 03/04/22 19:04 irritation Home Medications Medication Instructions Recorded Confirmed Type atorvastatin 10 mg tablet (Lipitor) 10 mg PO QPM 04/06/19 03/04/22 History betamethasone valerate 0.1 % 1 appln TOP DAILY PRN 04/06/19 03/04/22 History topical cream clindamycin phosphate 1 % topical 1 appln TOP DAILY PRN 04/06/19 03/04/22 History swab clobetasol 0.05 % shampoo 1 appln TOP DAILY PRN 04/06/19 03/04/22 History clobetasol 0.05 % topical gel 1 appln TOP BID PRN 04/06/19 03/04/22 History lisinopril 5 mg tablet 5 mg PO QAM 04/06/19 03/04/22 History metformin 500 mg tablet 500 mg PO QAM tab 04/06/19 03/04/22 History sertraline 100 mg tablet (Zoloft) 100 mg PO QAM 04/06/19 03/04/22 History medical marijuana 1 dose PO UD PRN 06/19/20 03/04/22 History dolutegravir 50 mg-lamivudine 300 1 tab PO QAM 03/15/21 03/04/22 History mg tablet (Dovato) pantoprazole 40 mg tablet,delayed 40 mg PO BID tab 03/15/21 03/04/22 History release (Protonix) acyclovir 400 mg tablet 400 mg PO BID 01/23/22 03/04/22 History albuterol sulfate 90 mcg/actuation 2 inh INHALATION QID PRN 01/23/22 03/04/22 History aerosol inhaler oxybutynin chloride 10 mg 10 mg PO AMPM 01/23/22 03/04/22 History tablet,extended release 24 hr ascorbic acid (vitamin C) 500 mg 500 mg PO DAILY 03/04/22 03/04/22 History tablet (Vitamin C) azithromycin 500 mg tablet 500 mg PO DAILY 03/04/22 03/04/22 History folic acid 1 mg tablet 1 mg PO DAILY 03/04/22 03/04/22 History gabapentin 600 mg tablet 600 mg PO TID 03/04/22 03/04/22 History ipratropium 0.5 mg-albuterol 3 mg 0 ml INHALATION QAM 03/04/22 03/04/22 History (2.5 mg base)/3 mL nebulization soln magnesium 250 mg tablet 250 mg PO DAILY 03/04/22 03/04/22 History metformin 500 mg tablet 1,000 mg PO QPM 03/04/22 03/04/22 History ondansetron HCl 8 mg tablet 8 mg PO BID PRN 03/04/22 03/04/22 History Past Med/Surg History Medical History Anemia BLOOD TRANSFUSIONS>LAST 01/20/22 Anxiety and depression Asthma NO RECENT INHALER PRN USE Avascular necrosis of bone of left hip BPH (benign prostatic hyperplasia) Cervical radiculopathy Cervical stenosis of spinal canal Cirrhosis Diabetes mellitus, type 2 Fatty liver GAVE (gastric antral vascular ectasia) GERD (gastroesophageal reflux disease) High cholesterol History of COVID-19 11/2021>HOSPITALIZED AT [facility] FOR NON-COVID SYMPTOMS HIV (human immunodeficiency virus infection) Hodgkin lymphoma Hx of bladder cancer Hydrocele Hypercholesterolemia Hypertension Lumbar facet joint syndrome Lumbar radiculopathy Migraine Neuropathy Portal hypertensive gastropathy Psoriasis Sacroiliitis Spleen enlarged Thrombocytopenia Surgical History H/O lymph node biopsy History of bilateral carpal tunnel release History of bladder surgery BLADDER TUMOR REMOVED History of bone marrow biopsy History of cholecystectomy History of colonoscopy History of cystoscopy History of esophagogastroduodenoscopy (EGD) History of right hip replacement History of vascular access device POWER PORT FOR CHEMO TX (CURRENT TX, SCHEDULED 01/28/22) Family History Mother Diabetes Lung disease Hypertension Father Gout Hypertension Brother Hypertension Other No family history of adverse response to anesthesia Social History Smoking Status: Former smoker Tobacco Type: Cigarettes Age Started Using Tobacco: 13; Age Quit Using Tobacco: 45; Years Smoked: 1; Cigarettes Per Day: 1 ppd; Smoking End Date: 2015; Second Hand Exposure: Yes ( A CHILD); Hx Alcohol Use: No Hx Substance Use: Yes Substance Use Type Other:: Has previously overdosed on opioid medications Preferred Language: Gambian Communication Ability: Effective Visual Impairment: No Limitations Hearing Ability: Normal Hand Cloth Cutter Required: No Beliefs That Will Affect Care: None marital status: single marital status details: homosexual Current Living Situation: Alone current occupational status: disabled Other Information That Helps Us Care for You: No Feels Safe at Home: Yes Safety Concerns: Feels Safe At This Time Assistive Devices: Cane, Glasses and Walker Review of Systems All systems reviewed & are unremarkable except as noted in Subjective Physical Exam Constitutional: Following resuscitation with packed red blood cells, he ap pears stable, in no distress at rest Respiratory: normal respiratory effort, lungs clear to auscultation Cardiovascular: resting tachycardia Gastrointestinal (Abdomen): Inspection/Auscultation: abdomen normal to inspection and normal bowel sounds Percussion/Palpation: abdomen soft; abdomen nontender and no guarding Neurologic: no focal neurologic signs Psychiatric: A+Ox3, euthymic affect ASA Classification ASA ASA4 Results & Data ([facility]) Vital Signs (Past 12 Hours) Vital Signs Temp Pulse Pulse Resp BP BP Pulse Ox 03/05/22 15:23 36.8 C 95 H 18 96 03/05/22 13:47 36.8 C 94 H 20 99/63 L 97 03/05/22 12:56 36.6 C 95 H 20 104/61 97 03/05/22 11:56 36.7 C 96 H 20 114/67 96 03/05/22 11:26 36.7 C 96 H 20 110/68 97 03/05/22 11:11 36.7 C 97 H 20 110/68 96 03/05/22 10:55 36.6 C 95 H 20 109/68 97 03/05/22 10:37 36.6 C 95 H 20 109/68 97 03/05/22 08:13 98/58 L 03/05/22 08:02 36.7 C 94 H 20 82/45 L 96 03/05/22 06:43 36.7 C 94 H 18 107/67 96 03/05/22 06:28 36.7 C 94 H 18 111/63 95 03/05/22 06:24 115 H 03/05/22 05:28 36.7 C 98 H 18 107/57 L 98 03/05/22 04:58 37.2 C 97 H 18 96/56 L 95 03/05/22 04:43 36.8 C 98 H 18 94/52 L 97 03/05/22 04:27 36.7 C 97 H 18 94/58 L 96 03/05/22 04:10 36.7 C 109 H 18 94/58 L 97 Code Status & VTE Plan VTE Prophylaxis Plan VTE Prophylaxis will be ordered: Yes
[2022-03-05] MEDS ORDERED: MIDAZOLAM HCL 1 MG/ML 2ML VIAL ONE (16:03)
[2022-03-05] MEDS ORDERED: LIDOCAINE 2% 2 ML VIAL/AMP(20MG/ML) INFIL ONE (16:03)
[2022-03-05] MEDS ORDERED: PROPOFOL IV EMULSION 10 MG/ML 20 ML VIAL IV ONE (16:03)
[2022-03-05] MEDS ORDERED: fentaNYL citrate 100 MCG/2 ML VIAL ONE (16:04)
[2022-03-05] MEDS ORDERED: PROMETHAZINE HCL 12.5 MG in SODIUM CHLORIDE 0.9% 50 ML IV PRN (16:12)
[2022-03-05] MEDS ORDERED: ATROPINE SULFATE 0.1 MG/ML 10ML SYR IV PRN (16:12)
[2022-03-05] MEDS ORDERED: ONDANSETRON INJ 2 MG/ML 2 ML VIAL IV PRN (16:12)
[2022-03-05] MEDS ORDERED: LABETALOL HCL IV 5 MG/ML 20ML IV PRN (16:12)
[2022-03-05] MEDS ORDERED: ePHEDrine sulfate 50 MG/ML AMP IV PRN (16:12)
[2022-03-05] MEDS ORDERED: NALOXONE HCL 0.4 MG/1 ML VIAL/CARP IV PRN (16:12)
[2022-03-05] MEDS ORDERED: FLUMAZENIL 0.1 MG/1 ML 10 ML VIAL IV PRN (16:12)
[2022-03-05] MEDS ORDERED: fentaNYL citrate 100 MCG/2 ML VIAL IV PRN (16:12)
--- NOTE | 2022-03-05 16:12 | Anesthesiology Consultation ---
Date of Service March 05, 2022 Assessment & Plan Chart Review Chart Review: Acceptable Risk for Surgery and Patient NOT seen in Pre Admission Testing Consults Requested none ASA ASA4E Proposed Anesthesia Anesthesia Type: General Risk / Benefits Reviewed With: PT / POA / Parent / Guardian, Accepts Plan and Informed Consent Obtained Additional Comments: covid test neg. History Surgery Operation Date: 03/05/22 07:00 Proposed Procedures p Esophagogastroduodenoscopy - Santiago Cardenas MD Height/Weight Height: 5 ft 6 in Weight: 91.2 kg Allergies Allergy/AdvReac Type Severity Reaction Status Date / Time Penicillins Allergy Intermediate HIVES Verified 03/04/22 19:04 adhesive tape AdvReac Mild skin Verified 03/04/22 19:04 irritation Medications Home Medications Medication Instructions Recorded Confirmed Last Taken atorvastatin 10 mg tablet (Lipitor) 10 mg PO QPM 04/06/19 03/04/22 01/28/22 betamethasone valerate 0.1 % 1 appln TOP DAILY PRN 04/06/19 03/04/22 Unknown topical cream clindamycin phosphate 1 % topical 1 appln TOP DAILY PRN 04/06/19 03/04/22 Unknown swab clobetasol 0.05 % shampoo 1 appln TOP DAILY PRN 04/06/19 03/04/22 Unknown clobetasol 0.05 % topical gel 1 appln TOP BID PRN 04/06/19 03/04/22 Unknown lisinopril 5 mg tablet 5 mg PO QAM 04/06/19 03/04/22 01/29/22 10:00 metformin 500 mg tablet 500 mg PO QAM tab 04/06/19 03/04/22 01/28/22 sertraline 100 mg tablet (Zoloft) 100 mg PO QAM 04/06/19 03/04/22 01/29/22 10:00 medical marijuana 1 dose PO UD PRN 06/19/20 03/04/22 01/26/22 dolutegravir 50 mg-lamivudine 300 1 tab PO QAM 03/15/21 03/04/22 01/29/22 10:00 mg tablet (Dovato) pantoprazole 40 mg tablet,delayed 40 mg PO BID tab 03/15/21 03/04/22 01/29/22 10:00 release (Protonix) acyclovir 400 mg tablet 400 mg PO BID 01/23/22 03/04/22 01/28/22 albuterol sulfate 90 mcg/actuation 2 inh INHALATION QID PRN 01/23/22 03/04/22 01/28/22 aerosol inhaler oxybutynin chloride 10 mg 10 mg PO AMPM 01/23/22 03/04/22 01/28/22 tablet,extended release 24 hr ascorbic acid (vitamin C) 500 mg 500 mg PO DAILY 03/04/22 03/04/22 Unknown tablet (Vitamin C) azithromycin 500 mg tablet 500 mg PO DAILY 03/04/22 03/04/22 03/04/22 09:00 folic acid 1 mg tablet 1 mg PO DAILY 03/04/22 03/04/22 Unknown gabapentin 600 mg tablet 600 mg PO TID 03/04/22 03/04/22 Unknown ipratropium 0.5 mg-albuterol 3 mg 0 ml INHALATION QAM 03/04/22 03/04/22 Unknown (2.5 mg base)/3 mL nebulization soln magnesium 250 mg tablet 250 mg PO DAILY 03/04/22 03/04/22 Unknown metformin 500 mg tablet 1,000 mg PO QPM 03/04/22 03/04/22 Unknown ondansetron HCl 8 mg tablet 8 mg PO BID PRN 03/04/22 03/04/22 Unknown Active Medications Generic Name Dose Route Start Last Admin Trade Name Freq PRN Reason Stop Dose Admin Acetaminophen 650 mg 03/04/22 21:15 03/05/22 00:52 Acetaminophen 325 Mg Tab PO 04/03/22 21:14 650 mg Q4H PRN Administration Pain or Fever Acyclovir 400 mg 03/04/22 21:15 03/05/22 08:25 Acyclovir 400 Mg Tab PO 04/03/22 21:14 400 mg BID MARILYN Administration Atorvastatin Calcium 10 mg 03/04/22 21:15 03/04/22 22:57 Atorvastatin 10 Mg Tab PO 04/03/22 21:14 10 mg QPM MARILYN Administration Azithromycin 500 mg 03/05/22 09:00 03/05/22 08:25 Azithromycin 250 Mg Tab PO 04/04/22 08:59 500 mg DAILY MARILYN Administration Folic Acid 1 mg 03/05/22 09:00 03/05/22 08:26 Folic Acid 1 Mg Tab PO 04/04/22 08:59 1 mg DAILY MARILYN Administration Gabapentin 600 mg 03/04/22 21:15 03/05/22 13:22 Gabapentin 600 Mg Tab PO 04/03/22 21:14 600 mg TID MARILYN Administration Heparin Sodium (Porcine) 5 ml 03/05/22 01:09 03/05/22 13:34 Heparin 100 Unit/Ml 5ml Flush FLUSH 04/04/22 01:08 5 ml PRN PRN Administration Flush Octreotide Acetate 500 mcg/ 105 mls @ 10.5 mls/hr 03/04/22 19:45 03/05/22 15:21 Dextrose IV 04/03/22 19:44 Infused .Q10H MARILYN Infusion 50 MCG/HR Pantoprazole Sodium 40 mg/ 100 mls @ 20 mls/hr 03/04/22 19:45 03/05/22 15:08 Dextrose IV 04/03/22 19:44 0 mg/hr Q5H MARILYN 0 mls/hr Infusion 8 MG/HR Ceftriaxone Sodium 2,000 mg/ 70 mls @ 140 mls/hr 03/05/22 00:00 03/05/22 01:49 Dextrose IV 03/15/22 00:00 Infused Q24H MARILYN Infusion Insulin Aspart 0 units 03/04/22 22:00 03/05/22 12:13 Insulin Aspart Per Unit SC 04/03/22 21:59 1 units Q6 MARILYN Administration Magnesium Oxide 400 mg 03/05/22 09:00 03/05/22 08:26 Magnesium Oxide 400 Mg Tab PO 04/04/22 08:59 400 mg DAILY MARILYN Administration Dovato~Non-Formulary 1 ea 03/05/22 09:00 03/05/22 08:27 Patient's Own Med PO 04/04/22 08:59 1 tab Q24H MARILYN Administration Oxybutynin Chloride 10 mg 03/04/22 21:45 03/05/22 08:33 Oxybutynin Chloride Xl 5 Mg Tabcr PO 04/03/22 21:44 10 mg BID MARILYN Administration Ropinirole HCl 0.25 mg 03/05/22 00:27 03/05/22 01:13 Ropinirole Hcl 0.25 Mg Tablet PO 04/04/22 20:59 0.25 mg HS PRN Administration restless legs Sertraline HCl 100 mg 03/05/22 09:00 03/05/22 08:27 Sertraline Hcl 100 Mg Tablet PO 04/04/22 08:59 100 mg QAM MARILYN Administration NPO Date Last Intake of Fluids: 03/05/22 Time Last Intake of Fluids: 07:00 Date Last Intake of Solids: 03/04/22 Time Last Intake of Solids: 18:00 Past Medical History Medical History Anemia BLOOD TRANSFUSIONS>LAST 01/20/22 Anxiety and depression Asthma NO RECENT INHALER PRN USE Avascular necrosis of bone of left hip BPH (benign prostatic hyperplasia) Cervical radiculopathy Cervical stenosis of spinal canal Cirrhosis Diabetes mellitus, type 2 Fatty liver GAVE (gastric antral vascular ectasia) GERD (gastroesophageal reflux disease) High cholesterol History of COVID-19 11/2021>HOSPITALIZED AT [facility] FOR NON-COVID SYMPTOMS HIV (human immunodeficiency virus infection) Hodgkin lymphoma Hx of bladder cancer Hydrocele Hypercholesterolemia Hypertension Lumbar facet joint syndrome Lumbar radiculopathy Migraine Neuropathy Portal hypertensive gastropathy Psoriasis Sacroiliitis Spleen enlarged Thrombocytopenia Exercise / Class Metabolic Activity III < 4 Walking/Shop/Light housework Past Family History Family History Mother Diabetes Lung disease Hypertension Father Gout Hypertension Brother Hypertension Other No family history of adverse response to anesthesia Past Surgical History Surgical History H/O lymph node biopsy History of bilateral carpal tunnel release History of bladder surgery BLADDER TUMOR REMOVED History of bone marrow biopsy History of cholecystectomy History of colonoscopy History of cystoscopy History of esophagogastroduodenoscopy (EGD) History of right hip replacement History of vascular access device POWER PORT FOR CHEMO TX (CURRENT TX, SCHEDULED 01/28/22) Past Anesthesia History No Hx of Anesthesia Complications and No Family Hx of Anesthesia Complications History of PONV No Hx of PONV and No Hx of Motion Sickness Social History Smoking Status: Former smoker tobacco type: cigarettes Smoking cigarettes per day: 1 ppd Smoking End Date: 2015 Hx Alcohol Use: No Hx Substance Use: Yes substance use type: marijuana Substance Use Type Other:: Has previously overdosed on opioid medications Physical Exam Vital Signs Last Vital Signs Temp 36.8 C 03/05/22 15:23 Pulse 95 H 03/05/22 15:23 Resp 18 03/05/22 15:23 BP 99/63 L 03/05/22 13:47 Pulse Ox 96 03/05/22 15:23 Constitutional + obese ENMT Mouth: + dentition abnormality and + poor dentition Thyromental Distance: > or= 3.5 Finger Breadths Mallampati Class: II Neck normal visual inspection and trachea midline; neck extension not limited Respiratory normal respiratory effort Auscultation: lungs clear to auscultation bilaterally Cardiovascular Rate/Rhythm: regular rate and regular rhythm Heart Sounds: no murmur Vessels: no carotid bruit Musculoskeletal Spine: normal cervical ROM Neurologic moves all extremities Motor/Sensory: no sensory deficit Psychiatric Orientation: alert and oriented x 3 Testing Laboratory Results 03/05/22 07:58 03/05/22 07:58 PT 14.0 Seconds (9.0-12.0) H 03/04/22 17:49 INR 1.3 (0.9-1.1) H 03/04/22 17:49 APTT 31.3 Seconds (21.0-31.0) H 03/04/22 17:49 Hemoglobin A1c 5.5 % (4.5-5.6) 03/05/22 07:58 Urine Color Dark Yellow 03/04/22 18:48 Urine Appearance Clear (Clear) 03/04/22 18:48 Urine pH 5.5 (4.5-7.5) 03/04/22 18:48 Ur Specific [place] 1.020 (1.000-1.030) 03/04/22 18:48 Urine Protein Negative (Negative) 03/04/22 18:48 Urine Glucose (UA) Negative (Negative) 03/04/22 18:48 Urine Ketones Trace (Negative) H 03/04/22 18:48 Urine Nitrite Negative (Negative) 03/04/22 18:48 Ur Leukocyte Esterase Trace (Negative) H 03/04/22 18:48 Urine WBC (Auto) 1-5 /hpf (0-5) 03/04/22 18:48 Urine RBC (Auto) 0-4 /hpf (0-4) 03/04/22 18:48 U Hyaline Cast (Auto) 1-5 /lpf (0-5) 03/04/22 18:48 U Epithel Cells (Auto) 0-5 /lpf (0-5) 03/04/22 18:48 Urine Bacteria (Auto) Negative (Negative) 03/04/22 18:48 Blood Type O Positive 03/04/22 17:49 Antibody Screen NEGATIVE 03/04/22 17:49 03/05/22 03/05/22 03/05/22 15:44 11:54 06:48 POC Glucose 125 H 161 H 186 H Electrocardiogram Date: 03/05/22 Findings: + NSR @ (at 90;prolonged QT) Chest X-Ray Date: 03/04/22 Findings: + NAD
--- NOTE | 2022-03-05 17:10 | GI REPORT ---
Patient Name: Be Domingo Procedure Date: 03/05/2022 2:58 PM Date of : 1970 Admit Type: Inpatient Age: 51 Gender: Male Attending MD: Santiago Cardenas MD Procedure: Upper GI endoscopy Providers: Santiago Cardenas MD Referring MD: LEONEL CARRASCO Indications: Active gastrointestinal bleeding Medicines: Monitored Anesthesia Care Complications: No immediate complications. Estimated Blood Loss: Estimated blood loss was minimal. Procedure: Pre-Anesthesia Assessment: - Prior to the procedure, a History and Physical was performed, and patient medications and allergies were reviewed. The patient is competent. The risks and benefits of the procedure and the sedation options and risks were discussed with the patient. All questions were answered and informed consent was obtained. Patient identification and proposed procedure were verified by the physician and the nurse in the pre-procedure area. Mental Status Examination: alert and oriented. Airway Examination: normal oropharyngeal airway and neck mobility. Respiratory Examination: clear to auscultation. CV Examination: tachycardia noted. Prophylactic Antibiotics: The patient requires prophylactic antibiotics due to a prior history of acute GI bleeding. Prior Anticoagulants: The patient has taken no previous anticoagulant or antiplatelet agents. After reviewing the risks and benefits, the patient was deemed in satisfactory condition to undergo the procedure. The anesthesia plan was to use monitored anesthesia care (MAC). Immediately prior to administration of medications, the patient was re-assessed for adequacy to receive sedatives. The heart rate, respiratory rate, oxygen saturations, blood pressure, adequacy of pulmonary ventilation, and response to care were monitored throughout the procedure. The physical status of the patient was re-assessed after the procedure. After obtaining informed consent, the endoscope was passed under direct vision. Throughout the procedure, the patient's blood pressure, pulse, and oxygen saturations were monitored continuously. The Endoscope was introduced through the mouth, and advanced to the antrum of the stomach. The upper GI endoscopy was accomplished without difficulty. The patient tolerated the procedure well. Findings: Grade I varices were found at the gastroesophageal junction. There is no endoscopic evidence of bleeding, areas of erosion or ulcerations in the entire esophagus. The Z-line was regular and was found 40 cm from the incisors. PTCHY severe hemorrhagic inflammation characterized by multiple areas with spontaneous hemorrhage was found in the entire examined stomach, particularly in the gastric body. Fulguration to stop the bleeding by argon plasma at 0.3 liters/minute and 20 gibbs was successful. Estimated blood loss was minimal. Few non-bleeding cratered gastric ulcers with no stigmata of bleeding were found in the cardia. Impression: - Grade I esophageal varices. - Z-line regular, 40 cm from the incisors. - Gastritis with hemorrhage. Treated with argon plasma coagulation (APC). - Non-bleeding gastric ulcers with no stigmata of bleeding. - No specimens collected. Recommendation: - Return patient to hospital van for ongoing care. MD Santiago Zendejas MD 03/05/2022 5:10:32 PM This report has been signed electronically. Note Initiated On: 03/05/2022 2:58 PM Number of Addenda: 0 I attest to the content of the Intraoperative Record and orders documented therein, exceptions below {[id number]}
--- NOTE | 2022-03-05 17:13 | Post Operative Brief Note ---
Immediate Post Op Note v1 Date of Surgery March 05, 2022 Pre & Post Diagnosis Operation Date: 03/05/22 07:00 Pre-Op Diagnosis: GI Bleed, Anemia Post-Op Diagnosis: GI Bleed, Anemia I identified the patient and participated in the time-out.: Yes Procedure Operation Date: 03/05/22 07:00 Actual Procedures p Esophagogastroduodenoscopy - Santiago Cardenas MD Surgeon Santiago Cardenas MD Architectural Administrative Assistant none Estimated Blood Loss 0 Findings Consistent with Post-Op Diagnosis Diffuse portal hypertensive gastropathy with multiple sites of active bleeding, areas of the gastric body cauterized with Argon Plasma Coagulation. Grade 1 nonbleeding esophageal varices detected. Complications none noted
[2022-03-05] MEDS ORDERED: PHENYLEPHRINE HCL 10 MG/ML VIAL ONE (17:17)
[2022-03-05] MEDS ORDERED: DEXAMETHASONE SOD INJ 4 MG/ML VIAL ONE (17:17)
--- NOTE | 2022-03-05 17:17 | Gastrointestinal Consultation ---
Date of Consultation March 05, 2022 Assessment & Plan (1) GIB (gastrointestinal bleeding): (2) Acute blood loss anemia: (3) Portal hypertensive gastropathy: (4) Cirrhosis of liver: EGD reveals bleeding diffusely from portal hypertensive gastropathy, with continuing blood loss. Multiple treatments with argon plasma coagulation have been ineffective in controlling the bleeding. At this point, he should be transferred to tertiary care for TIPS procedure (or shunt) for bleeding control. Continue resuscitation here at [facility] with packed cell transfusions to Hgb >7, and IV octreotide drip, IV Protonix, and PCU monitoring and observation. Supervising Physician Co-Signing Physician Notes As the supervising physician I, Santiago Cardenas, have spent 45 minutes of discrete time performing the activities of this consultation which include but are not limited to: 1. Review of past and current medical records 2. Patient interview, physical examination, discussion of the assessment and plan of care with the patient and family if present 3. Documentation of the consultation in the medical record including orders and discussion of the plan of care with members of the healthcare team History of Present Illness Reason for Consultation: Acute GI bleeding with blood loss anemia Attending Physician: Nayana Paz MD History of Present Illness Mr. Domingo is a 51 year old man with history of hepatic cirrhosis with portal hypertension and episodic bleeding related to portal hypertensive gastropathy. He has had multiple episodes of bleeding treated with argon plasma coagulation, most recently he had an EGD on 01/29/2022 with areas of the antrum and cardia cauterized. On 03/03/22 he was found to have a Hgb of 5.1 and received 2 units of packed red blood cells. He continued to note rectal bleeding unchanged, and came to the hospital late on 03/04/22 where he was found to have rectal bleeding, a resting tachycardia, and Hgb = 5.6, admitted for resuscitation and control of bleeding. Allergies Allergy/AdvReac Type Severity Reaction Status Date / Time Penicillins Allergy Intermediate HIVES Verified 03/04/22 19:04 adhesive tape AdvReac Mild skin Verified 03/04/22 19:04 irritation Home Medications Medication Instructions Recorded Confirmed Type atorvastatin 10 mg tablet (Lipitor) 10 mg PO QPM 04/06/19 03/04/22 History betamethasone valerate 0.1 % 1 appln TOP DAILY PRN 04/06/19 03/04/22 History topical cream clindamycin phosphate 1 % topical 1 appln TOP DAILY PRN 04/06/19 03/04/22 History swab clobetasol 0.05 % shampoo 1 appln TOP DAILY PRN 04/06/19 03/04/22 History clobetasol 0.05 % topical gel 1 appln TOP BID PRN 04/06/19 03/04/22 History lisinopril 5 mg tablet 5 mg PO QAM 04/06/19 03/04/22 History metformin 500 mg tablet 500 mg PO QAM tab 04/06/19 03/04/22 History sertraline 100 mg tablet (Zoloft) 100 mg PO QAM 04/06/19 03/04/22 History medical marijuana 1 dose PO UD PRN 06/19/20 03/04/22 History dolutegravir 50 mg-lamivudine 300 1 tab PO QAM 03/15/21 03/04/22 History mg tablet (Dovato) pantoprazole 40 mg tablet,delayed 40 mg PO BID tab 03/15/21 03/04/22 History release (Protonix) acyclovir 400 mg tablet 400 mg PO BID 01/23/22 03/04/22 History albuterol sulfate 90 mcg/actuation 2 inh INHALATION QID PRN 01/23/22 03/04/22 History aerosol inhaler oxybutynin chloride 10 mg 10 mg PO AMPM 01/23/22 03/04/22 History tablet,extended release 24 hr ascorbic acid (vitamin C) 500 mg 500 mg PO DAILY 03/04/22 03/04/22 History tablet (Vitamin C) azithromycin 500 mg tablet 500 mg PO DAILY 03/04/22 03/04/22 History folic acid 1 mg tablet 1 mg PO DAILY 03/04/22 03/04/22 History gabapentin 600 mg tablet 600 mg PO TID 03/04/22 03/04/22 History ipratropium 0.5 mg-albuterol 3 mg 0 ml INHALATION QAM 03/04/22 03/04/22 History (2.5 mg base)/3 mL nebulization soln magnesium 250 mg tablet 250 mg PO DAILY 03/04/22 03/04/22 History metformin 500 mg tablet 1,000 mg PO QPM 03/04/22 03/04/22 History ondansetron HCl 8 mg tablet 8 mg PO BID PRN 03/04/22 03/04/22 History Patient History Medical History Anemia BLOOD TRANSFUSIONS>LAST 01/20/22 Anxiety and depression Asthma NO RECENT INHALER PRN USE Avascular necrosis of bone of left hip BPH (benign prostatic hyperplasia) Cervical radiculopathy Cervical stenosis of spinal canal Cirrhosis Diabetes mellitus, type 2 Fatty liver GAVE (gastric antral vascular ectasia) GERD (gastroesophageal reflux disease) High cholesterol History of COVID-19 11/2021>HOSPITALIZED AT [facility] FOR NON-COVID SYMPTOMS HIV (human immunodeficiency virus infection) Hodgkin lymphoma Hx of bladder cancer Hydrocele Hypercholesterolemia Hypertension Lumbar facet joint syndrome Lumbar radiculopathy Migraine Neuropathy Portal hypertensive gastropathy Psoriasis Sacroiliitis Spleen enlarged Thrombocytopenia Surgical History H/O lymph node biopsy History of bilateral carpal tunnel release History of bladder surgery BLADDER TUMOR REMOVED History of bone marrow biopsy History of cholecystectomy History of colonoscopy History of cystoscopy History of esophagogastroduodenoscopy (EGD) History of right hip replacement History of vascular access device POWER PORT FOR CHEMO TX (CURRENT TX, SCHEDULED 01/28/22) Family History Mother Diabetes Lung disease Hypertension Father Gout Hypertension Brother Hypertension Other No family history of adverse response to anesthesia Social History Smoking Status: Former smoker Tobacco Type: Cigarettes Age Started Using Tobacco: 13; Age Quit Using Tobacco: 45; Years Smoked: 1; Cigarettes Per Day: 1 ppd; Smoking End Date: 2015; Second Hand Exposure: Yes ( A CHILD); Hx Alcohol Use: No Hx Substance Use: Yes Substance Use Type Other:: Has previously overdosed on opioid medications Preferred Language: Bulgarian Communication Ability: Effective Visual Impairment: No Limitations Hearing Ability: Normal Mosquito Sprayer Required: No Beliefs That Will Affect Care: None marital status: single marital status details: homosexual Current Living Situation: Alone current occupational status: disabled Other Information That Helps Us Care for You: No Feels Safe at Home: Yes Safety Concerns: Feels Safe At This Time Assistive Devices: Cane, Glasses and Walker Review of Systems Review of Systems: All systems reviewed & are unremarkable except as noted in Subjective Physical Exam Eyes: + anicteric sclerae Respiratory: normal respiratory effort, lungs clear to auscultation Gastrointestinal (Abdomen): Inspection/Auscultation: abdomen normal to inspection and normal bowel sounds Percussion/Palpation: abdomen soft; abdomen nontender and no guarding Neurologic: No focal neurologic signs Psychiatric: A+Ox3, euthymic affect Results & Data ([facility]) Vital Signs (Past 12 Hours) Vital Signs Temp Pulse Pulse Resp BP BP Pulse Ox 03/05/22 17:07 36.2 C L 108 H 22 102/59 L 97 03/05/22 15:23 36.8 C 95 H 18 96 03/05/22 13:47 36.8 C 94 H 20 99/63 L 97 03/05/22 12:56 36.6 C 95 H 20 104/61 97 03/05/22 11:56 36.7 C 96 H 20 114/67 96 03/05/22 11:26 36.7 C 96 H 20 110/68 97 03/05/22 11:11 36.7 C 97 H 20 110/68 96 03/05/22 10:55 36.6 C 95 H 20 109/68 97 03/05/22 10:37 36.6 C 95 H 20 109/68 97 03/05/22 08:13 98/58 L 03/05/22 08:02 36.7 C 94 H 20 82/45 L 96 03/05/22 06:43 36.7 C 94 H 18 107/67 96 03/05/22 06:28 36.7 C 94 H 18 111/63 95 03/05/22 06:24 115 H 03/05/22 05:28 36.7 C 98 H 18 107/57 L 98 (1) GIB (gastrointestinal bleeding) GI bleed type/associated pathology: unspecified gastrointestinal hemorrhage type Qualified Code(s): K92.2 - Gastrointestinal hemorrhage, unspecified
[2022-03-05] MEDS ORDERED: ePHEDrine sulfate 50 MG/ML AMP ONE (17:18)
--- NOTE | 2022-03-05 17:48 | Anesthesiology Progress Note ---
Date of Service March 05, 2022 Anesthesia Post Procedure Vital Signs Vital Signs: Temp Pulse Pulse Resp BP BP Pulse Ox 03/05/22 17:45 36.6 C 113 H 20 112/58 L 93 03/05/22 17:35 36.3 C L 107 H 20 102/60 94 03/05/22 17:25 105 H 20 109/63 94 03/05/22 17:15 106 H 22 101/55 L 94 03/05/22 17:07 36.2 C L 108 H 22 102/59 L 97 03/05/22 15:23 36.8 C 95 H 18 96 03/05/22 13:47 36.8 C 94 H 20 99/63 L 97 03/05/22 12:56 36.6 C 95 H 20 104/61 97 03/05/22 11:56 36.7 C 96 H 20 114/67 96 03/05/22 11:26 36.7 C 96 H 20 110/68 97 03/05/22 11:11 36.7 C 97 H 20 110/68 96 03/05/22 10:55 36.6 C 95 H 20 109/68 97 03/05/22 10:37 36.6 C 95 H 20 109/68 97 03/05/22 08:13 98/58 L 03/05/22 08:02 36.7 C 94 H 20 82/45 L 96 03/05/22 06:43 36.7 C 94 H 18 107/67 96 03/05/22 06:28 36.7 C 94 H 18 111/63 95 03/05/22 06:24 115 H 03/05/22 05:28 36.7 C 98 H 18 107/57 L 98 03/05/22 04:58 37.2 C 97 H 18 96/56 L 95 03/05/22 04:43 36.8 C 98 H 18 94/52 L 97 03/05/22 04:27 36.7 C 97 H 18 94/58 L 96 03/05/22 04:10 36.7 C 109 H 18 94/58 L 97 03/05/22 03:07 37.2 C 99 H 18 94/58 L 97 03/05/22 03:03 36.6 C 100 H 18 97/56 L 96 03/05/22 02:08 36.5 C 107 H 18 92/48 L 03/05/22 01:38 36.9 C 99 H 18 85/47 L 98 03/05/22 01:23 36.8 C 103 H 18 97/56 L 98 03/05/22 01:03 36.9 C 104 H 18 95/57 L 98 03/04/22 21:21 36.7 C 111 H 20 109/66 100 03/04/22 21:07 111 H 03/04/22 20:00 103 H 14 122/59 L 100 03/04/22 19:06 107 H 21 115/54 L 98 03/04/22 18:03 111/48 L 03/04/22 18:00 123 H 20 98 Pain Intensity Medial Abdomen: Pain Intensity: 4 Transfer of Care Handoff Completed per policy Notes Mental Status: alert / awake / arousable Patient Amnestic to Procedure: Yes Nausea / Vomiting: adequately controlled Pain: adequately controlled Airway Patency, RR, SpO2: stable & adequate BP & HR: stable & adequate Hydration State: stable & adequate Anesthetic Complications: no major complications apparent
[2022-03-05 18:51] LABS: Hematocrit (blood only) 24.5 % (42-52); Hemoglobin 8.3 g/dL (14.0-18.0)
[2022-03-05] MEDS: ATORVASTATIN 10 MG TAB PO SCH (20:38)
[2022-03-06] MEDS: INSULIN ASPART PER UNIT SC SCH ×5 (00:10→23:55)
[2022-03-06] MEDS: PANTOprazole 40 MG in DEXTROSE 5% 100 ML IV SCH ×6 (00:32→21:11)
[2022-03-06] MEDS: OCTREOTIDE ACETATE 500 MCG in DEXTROSE 5% 100 ML IV SCH ×3 (03:18→21:10)
--- NOTE | 2022-03-06 06:43 | Electrocardiogram Report ---
Test Reason : Blood Pressure : / mmHG Vent. Rate : 112 BPM Atrial Rate : 112 BPM P-R Int : 116 ms QRS Dur : 070 ms QT Int : 366 ms P-R-T Axes : 061 029 030 degrees QTc Int : 499 ms Sinus tachycardia Cannot rule out Anterior infarct , age undetermined Abnormal ECG No previous ECGs available Confirmed by Ernesto Gaines ([id number]) on 03/06/2022 6:43:46 AM Referred By: REFERRED SELF Confirmed By:Ernesto Gaines
--- NOTE | 2022-03-06 07:03 | Electrocardiogram Report ---
Test Reason : Blood Pressure : / mmHG Vent. Rate : 090 BPM Atrial Rate : 090 BPM P-R Int : 126 ms QRS Dur : 076 ms QT Int : 380 ms P-R-T Axes : 064 037 035 degrees QTc Int : 465 ms Normal sinus rhythm Normal ECG When compared with ECG of 04-MAR-2022 17:59, (unconfirmed) No significant change was found Confirmed by Ernesto Gaines ([id number]) on 03/06/2022 7:03:02 AM Referred By: REFERRED SELF Confirmed By:Ernesto Gaines
[2022-03-06 07:05] LABS: Hematocrit (blood only) 22.7 % (42-52); Hemoglobin 7.7 g/dL (14.0-18.0); Mean Corpuscular Hgb Conc 33.9 g/dL (32-36); Mean Corpuscular Volume 94.2 fL (80-100); Nucleated RBC # (auto) 0.03 K/uL (0-0); Nucleated RBC % (auto) 0.7 %; RDW Coefficient of Variation 16.3 % (11.5-14.5); RDW Standard Deviation 52.5 fL (36.4-46.3); Red Blood Count 2.41 M/uL (4.7-6.1); White Blood Count 3.97 K/uL (4.8-10.8)
[2022-03-06 07:30] LABS: Mean Platelet Volume 10.9 fL (7.4-10.4); Platelet Count 54 K/uL (130-400)
[2022-03-06 07:32] LABS: ALC (manual) 0.35 K/uL (1.2-3.4); ANC (manual) 3.34 K/uL (1.4-6.5); Basophils # (manual) 0.04 K/uL (0-0.2); Basophils % (manual) 0.9 %; Lymphocytes # (manual) 0.35 K/uL (1.2-3.4); Lymphocytes % (manual) 8.8 %; Monocytes # (manual) 0.14 K/uL (0.11-0.59); Monocytes % (manual) 3.5 %; Myelocytes # (manual) 0.11 K/uL (0-0); Myelocytes % (manual) 2.7 %; Neutrophils # (manual) 3.34 K/uL (1.4-6.5); Neutrophils % (manual) 84.1 %; Polychromasia 1+
[2022-03-06] MEDS: DOVATO PO SCH (08:30)
[2022-03-06] MEDS: ACYCLOVIR 400 MG TAB PO SCH ×2 (08:31→21:20)
[2022-03-06] MEDS: OXYBUTYNIN CHLORIDE XL 5 MG TABCR PO SCH ×2 (08:31→21:19)
[2022-03-06] MEDS: AZITHROMYCIN 250 MG TAB PO SCH (08:31)
[2022-03-06] MEDS: SERTRALINE HCL 100 MG TABLET PO SCH (08:32)
[2022-03-06] MEDS: MAGNESIUM OXIDE 400 MG TAB PO SCH (08:32)
[2022-03-06] MEDS: FOLIC ACID 1 MG TAB PO SCH (08:33)
--- NOTE | 2022-03-06 09:07 | Gastroenterology Progress Note ---
Date of Service March 06, 2022 Assessment & Plan (1) GIB (gastrointestinal bleeding): Plan: EGD reveals bleeding diffusely from portal hypertensive gastropathy, with continuing blood loss. Multiple treatments with argon plasma coagulation have been ineffective in controlling the bleeding. At this point, he should be transferred to tertiary care for TIPS procedure (or shunt) for bleeding control. I have reached out to the hospitalist to determine if this process has been initiated. Continue resuscitation here at [facility] with packed cell transfusions to Hgb >7, and IV octreotide drip, IV Protonix, and PCU monitoring and observation. Please refer to supervising physician addendum for further recommendations. I have spent 30 minutes of discrete time performing the activities of this visit which include but are not limited to review of the medical record, obtaining a history, physical exam, and entering information in the electronic record. (2) Portal hypertensive gastropathy: (3) Acute blood loss anemia: (4) Cirrhosis of liver: Admission and Anticipated Discharge Date Admission Date: March 04, 2022 Supervising Physician Co-Signing Physician Notes I have seen and examined the patient. I agree with note above by MARY JANE Gillis except as noted below. HPI Pt denies abd pain. Started on clears and doing ok. PE Abdomen pos bs, soft, no guarding nor rebound A/P GI bleeding--likely from portal gastropathy. Disscussed [facility] hospitalist regarding transferring him to [facility], [place] because they know him and he was hospitalized most recently there for same reason in 11/2021. We are not able to control his bleeding here. As the supervising physician, I , Be Donovan MD have spent 19 minutes of discrete time performing the activities of this visit which include but not limited to review of the medical records, obtaining a history, physical exam and entering information in the electronic record. MARY JANE Gillis has reported spending 30 minutes of discrete time with the activities of this visit. Subjective The patient is a pleasant 51-year-old male with past medical history to include psoriatic arthritis (on Humira), HIV, nonspecific splenomegaly and adenopathy (status post BM and LN biopsy 09/2020 with inconclusive result but lymphoma suspected), Hodgkin lymphoma (08/2021) anemia, exocrine pancreatic insufficiency, anxiety/depression, migraines, bladder cancer, hypertension, diabetes type II who is known to the outpatient GI practice with history recently established with our outpatient GI practice with fatty liver, enlarged spleen, anemia, watermelon stomach (gave). He subsequently required admission due to profound anemia, portal hypertensive gastropathy, cirrhosis of the liver. 03/05/2022: EGD was performed by Dr. Cardenas demonstrated grade 1 varices found at the gastroesophageal junction. No endoscopic evidence of bleeding, areas of erosions or ulcerations in the entire esophagus. Z-line was regular found 40 cm to the incisors. Severe gastritis with hemorrhage. Treated with APC. Nonbleeding gastric ulcers with no stigmata of recent bleeding. There were no specimens collected. On exam/interview today, the patient reports that he is doing as well as could be expected. He is having no abdominal pain. Denies any nausea or vomiting. Remains n.p.o. Reports that he had 5 bowel movements yesterday but none so far today. Stools have been black. Denies any fever. He did discuss with Dr. Garrett her that it is recommended that he transfer to [place] for evaluation of TIPS procedure. He is in agreement with this plan of care and is wondering what our next steps are. The patient is a former smoker. He quit smoking in 2016 after smoking 1 pack of cigarettes per day for 25 years. He reports only rare alcohol intake. He does use medical marijuana. He has been on disability since 2004. He is unmarried and has no children. Review of Systems Review of Systems: All systems reviewed & are unremarkable except as noted in Subjective Physical Exam Eyes: + anicteric sclerae Respiratory: normal respiratory effort, lungs clear to auscultation Gastrointestinal (Abdomen): Inspection/Auscultation: abdomen normal to inspection and normal bowel sounds Percussion/Palpation: abdomen soft; abdomen nontender and no guarding Psychiatric: A+Ox3, euthymic affect Results & Data ([facility]) Vital Signs (Past 12 Hours) Vital Signs Temp Pulse Pulse Resp BP Pulse Ox 03/06/22 07:42 36.4 C L 84 20 100/60 95 03/06/22 03:37 94 H 18 104/65 96 03/05/22 23:49 36.6 C 96 H 18 112/67 92 03/05/22 23:00 96 H Laboratory Results Laboratory Results - last 24 hr 03/04/22 03/05/22 03/05/22 17:49 07:58 07:58 WBC 2.07 L RBC 2.04 L Hgb 6.6 L* Hct 18.8 L* MCV 92.2 MCH 32.4 MCHC 35.1 RDW Std Deviation 52.1 H RDW Coeff of Valentin 16.2 H Plt Count 46 L MPV 11.1 H Absolute Nucleated RBC 0.10 H Nucleated RBC % (auto) 4.9 Neutrophils % (Manual) Lymphocytes % (Manual) Monocytes % (Manual) Basophils % (Manual) Myelocytes % (Man) Neutrophils # (Manual) Total Absolute Neuts Lymphocytes # (Manual) Total Abs Lymphocytes Monocytes # (Manual) Basophils # (Manual) Myelocytes # (Manual) Polychromasia Sodium 140 Potassium 4.2 Chloride 112 H Carbon Dioxide 25 Anion Gap 3 BUN 14 Creatinine 1.05 Est Cr Clr Drug Dosing 86.0 Est GFR ( Amer) 93.5 Est GFR (Non-Af Amer) 80.7 BUN/Creatinine Ratio 13.3 Glucose 159 H POC Glucose Estimat Average Glucose Hemoglobin A1c Calcium 7.6 L Blood Type O Positive Antibody Screen NEGATIVE Crossmatch See Detail 03/05/22 03/05/22 03/05/22 07:58 11:54 15:44 WBC RBC Hgb Hct MCV MCH MCHC RDW Std Deviation RDW Coeff of Valentin Plt Count MPV Absolute Nucleated RBC Nucleated RBC % (auto) Neutrophils % (Manual) Lymphocytes % (Manual) Monocytes % (Manual) Basophils % (Manual) Myelocytes % (Man) Neutrophils # (Manual) Total Absolute Neuts Lymphocytes # (Manual) Total Abs Lymphocytes Monocytes # (Manual) Basophils # (Manual) Myelocytes # (Manual) Polychromasia Sodium Potassium Chloride Carbon Dioxide Anion Gap BUN Creatinine Est Cr Clr Drug Dosing Est GFR ( Amer) Est GFR (Non-Af Amer) BUN/Creatinine Ratio Glucose POC Glucose 161 H 125 H Estimat Average Glucose 111 Hemoglobin A1c 5.5 Calcium Blood Type Antibody Screen Crossmatch 03/05/22 03/05/22 03/05/22 17:08 18:10 18:44 WBC RBC Hgb 8.3 L Hct 24.5 L MCV MCH MCHC RDW Std Deviation RDW Coeff of Valentin Plt Count MPV Absolute Nucleated RBC Nucleated RBC % (auto) Neutrophils % (Manual) Lymphocytes % (Manual) Monocytes % (Manual) Basophils % (Manual) Myelocytes % (Man) Neutrophils # (Manual) Total Absolute Neuts Lymphocytes # (Manual) Total Abs Lymphocytes Monocytes # (Manual) Basophils # (Manual) Myelocytes # (Manual) Polychromasia Sodium Potassium Chloride Carbon Dioxide Anion Gap BUN Creatinine Est Cr Clr Drug Dosing Est GFR ( Amer) Est GFR (Non-Af Amer) BUN/Creatinine Ratio Glucose POC Glucose 144 H 168 H Estimat Average Glucose Hemoglobin A1c Calcium Blood Type Antibody Screen Crossmatch 03/05/22 03/06/22 03/06/22 23:46 06:08 06:55 WBC 3.97 L RBC 2.41 L Hgb 7.7 L Hct 22.7 L MCV 94.2 MCH 32.0 MCHC 33.9 RDW Std Deviation 52.5 H RDW Coeff of Valentin 16.3 H Plt Count 54 L MPV 10.9 H Absolute Nucleated RBC 0.03 H Nucleated RBC % (auto) 0.7 Neutrophils % (Manual) 84.1 Lymphocytes % (Manual) 8.8 Monocytes % (Manual) 3.5 Basophils % (Manual) 0.9 Myelocytes % (Man) 2.7 Neutrophils # (Manual) 3.34 Total Absolute Neuts 3.34 Lymphocytes # (Manual) 0.35 L Total Abs Lymphocytes 0.35 L Monocytes # (Manual) 0.14 Basophils # (Manual) 0.04 Myelocytes # (Manual) 0.11 H Polychromasia 1+ Sodium Potassium Chloride Carbon Dioxide Anion Gap BUN Creatinine Est Cr Clr Drug Dosing Est GFR ( Amer) Est GFR (Non-Af Amer) BUN/Creatinine Ratio Glucose POC Glucose 224 H 167 H Estimat Average Glucose Hemoglobin A1c Calcium Blood Type Antibody Screen Crossmatch (1) GIB (gastrointestinal bleeding) GI bleed type/associated pathology: unspecified gastrointestinal hemorrhage type Qualified Code(s): K92.2 - Gastrointestinal hemorrhage, unspecified
--- NOTE | 2022-03-06 09:26 | Electrocardiogram Report ---
Test Reason : Blood Pressure : / mmHG Vent. Rate : 090 BPM Atrial Rate : 090 BPM P-R Int : 138 ms QRS Dur : 082 ms QT Int : 414 ms P-R-T Axes : 068 027 032 degrees QTc Int : 506 ms Normal sinus rhythm Normal ECG When compared with ECG of 05-MAR-2022 06:58, No significant change was found Confirmed by Tobin Marsh ([id number]) on 03/06/2022 9:26:29 AM Referred By: REFERRED SELF Confirmed By:Tobin Marsh
[2022-03-06] MEDS: GABAPENTIN 600 MG TAB PO SCH ×3 (10:27→21:20)
--- NOTE | 2022-03-06 11:23 | Hospitalist Progress Note ---
Date of Service March 06, 2022 Assessment & Plan (1) GIB (gastrointestinal bleeding): (2) Acute blood loss anemia: (3) GAVE (gastric antral vascular ectasia): (4) Portal hypertensive gastropathy: (5) Thrombocytopenia: (6) Cirrhosis: Plan: Patient presenting from home with reports of generalized weakness and fatigue, bright red GI bleed Patient reports chronic anemia for the past 2 years intermittently requiring repeat blood transfusions. Last EGD on 01/29/2022 showing Gastric antral vascular ectasia with bleeding treated with argon plasma coagulation (APC), Portal hypertensive gastropathy with bleeding treated with argon plasma coagulation (APC). S/P 2 units PRBC 0n 03/03 at [facility] due to hemoglobin of 5.1. Hgb on admission 5.6 and platelet 52K Received a total of 3 units PRBC so far during the hospital stay ( 2 units last night and 1 unit this morning) Follows with Dr. Donovan with [facility] GI outpatient Gastro on board S/P EGD on 03/05 reveals bleeding diffusely from portal hypertensive gastropathy, with continuing blood loss. Multiple treatments with argon plasma coagulation have been ineffective in controlling the bleeding. GI recommended to transfer to tertiary care for TIPS procedure (or shunt) for bleeding control. Continue IV famotidine, IV Protonix and octreotide Called transfer line at [place] to discuss the case with the rehabilitation teacher Gastro Dr. Rich and Hospitalist Dr. Iniguez and the program production specialist As per Night Cleaner at [place] pt is not candidate for TIPS. Pt will need to get evaluate for liver transplant Case discussed with Dr. Blue that suggested to call [facility] because pt had procedure with [facility] in the past for higher level of care Continue monitor H/H and if hgb less than 7, will transfuse PRBC GI started him on clear liquid diet since pt is asking for food later I discussed the case with [facility] hospitalist Dr Wayne that agreed to accept the patient for transfer Continue monitor closely (7) Prolonged QT interval: Plan: Borderline, QTC 499 Will avoid QTC prolong med Continue monitor EKG (8) Hodgkin lymphoma: Plan: Diagnosed August 2021, completed chemotherapy on 02/25/2022 per patient Follows with Dr. Perez in [place] Continue prophylactic azithromycin and acyclovir (9) HIV (human immunodeficiency virus infection): Plan: Follows with Dr. Ramirez with [facility] Continue Dovato (10) Diabetes mellitus, type 2: Plan: Most recent Hba1c 5.5 Hold oral agents, utilize NovoLog per protocol while hospitalized Continue monitor BS (11) Hypertension: Plan: Continue to lisinopril due to borderline low BPs (12) DVT prophylaxis: Plan: SCDs due to GI bleeding Disposition Will transfer to [facility] Admission and Anticipated Discharge Date Admission Date: March 04, 2022 Subjective Pt was seen and examined for follow up of GI bleed Lying in bed with no acute distress Pt said that he is having less bloody stool He said that he has a mild abdominal discomfort Denies any chest pain, palpitation, dizziness and SOB Review of Systems Review of Systems: All systems reviewed & are unremarkable except as noted in Subjective Physical Exam Physical Exam: General- No acute distress Head- atraumatic Eyes- PERRL, EOMI, ENT- oropharynx clear Neck- supple, no JVD Lungs- clear to auscultation Heart- regular rhythm; no murmur Abdomen- normal bowel sounds, +mild tender Extremities- no calf tenderness, +trace edema Neuro- alert, oriented x 3; PERRL, EOMI; no facial palsy; no dysarthria Skin- warm & dry Results & Data Results & Data ([facility]) Vital Signs (Past 12 Hours) Vital Signs Temp Pulse Resp BP Pulse Ox 03/06/22 07:42 36.4 C L 84 20 100/60 95 03/06/22 03:37 94 H 18 104/65 96 03/05/22 23:49 36.6 C 96 H 18 112/67 92 (1) GIB (gastrointestinal bleeding) GI bleed type/associated pathology: unspecified gastrointestinal hemorrhage type Qualified Code(s): K92.2 - Gastrointestinal hemorrhage, unspecified
[2022-03-06 15:14] LABS: Hematocrit (blood only) 24.1 % (42-52); Hemoglobin 8.1 g/dL (14.0-18.0)
[2022-03-06] MEDS: ATORVASTATIN 10 MG TAB PO SCH (21:20)
[2022-03-06 23:52] VITALS: BP 103/58; TEMP 97.5; O2SAT 96
[2022-03-06] MEDS: cefTRIAXone SODIUM 2,000 MG in DEXTROSE 5% 50 ML IV SCH ×2 (23:55)
[2022-03-07 01:05] VITALS: PULSE 90
--- NOTE | 2022-03-10 09:24 | Discharge Summary ---
Date of Service March 06, 2022 Admission HPI Per Admitting Provider 51 year old man with refractory episodes of GI bleeding related to portal hypertensive gastropathy. Past history of hepatic cirrhosis with portal hypertension, blood loss anemia, small esophageal varices, splenomegaly, Hodgkins lymphoma, HIV, T2DM, bladder cancer, HTN, psoriatic arhtritis Admission Exam Per Admitting Provider Constitutional: WD/WN, vitals as above Eyes: PERRL, conjunctivae normal, anicteric sclerae ENMT: external ear and nose normal, oropharynx normal Respiratory: normal respiratory effort, lungs clear to auscultation Cardiovascular: Rate/Rhythm: regular rhythm and + tachycardic Vessels: normal peripheral pulses Extremities: + edema (+ 1 Edema BLE) Gastrointestinal (Abdomen): Inspection/Auscultation: + abdomen distended and normal bowel sounds Percussion/Palpation: + abdomen tender (Epigastric, RUQ) and abdomen soft; no hepatosplenomegaly Musculoskeletal: no cyanosis or clubbing, extremities motor strength 5/5 Skin: no rashes, warm and dry Neurologic: PERRL, EOMI, accommodation nl, no face palsy, no dysarthria Psychiatric: A+Ox3, euthymic affect Principal Diagnosis (1) GIB (gastrointestinal bleeding): (2) Acute blood loss anemia: (3) GAVE (gastric antral vascular ectasia): (4) Portal hypertensive gastropathy: (5) Thrombocytopenia: (6) Cirrhosis: Discharge Exam General- No acute distress Head- atraumatic Eyes- PERRL, EOMI, ENT- oropharynx clear Neck- supple, no JVD Lungs- clear to auscultation Heart- regular rhythm; no murmur Abdomen- normal bowel sounds, +mild tender Extremities- no calf tenderness, +trace edema Neuro- alert, oriented x 3; PERRL, EOMI; no facial palsy; no dysarthria Skin- warm & dry Discharge Data Allergies Allergy/AdvReac Type Severity Reaction Status Date / Time Penicillins Allergy Intermediate HIVES Verified 03/04/22 19:04 adhesive tape AdvReac Mild skin Verified 03/04/22 19:04 irritation Consultations 03/04/22 18:36 ED Decision to Admit Stat 03/04/22 21:15 Consult Gastroenterology Routine 03/06/22 12:12 Burn CD for patient Stat Procedures Performed Operation Date: 03/05/22 07:00 Actual Procedures p Esophagogastroduodenoscopy - Santiago Cardenas MD Ordered Studies XR KUB/Abdomen 1 view CLINICAL HISTORY: Pain, weakness TECHNIQUE: 1 view of the abdomen was obtained. Comparison: None available at the time of this dictation. FINDINGS: Lung bases are unremarkable. Right total hip arthroplasty is seen. The bowel gas pattern is nonobstructive. A moderate amount of stool is noted within the large bowel. IMPRESSION: Nonobstructive bowel gas pattern. ACT 112: Negative or not required by law. Electronically signed by: Alvarado Keith M.D. 03/04/2022 6:25 PM Dictated:03/04/221824 Transcribed: 03/04/221824 XR chest 1V portable CLINICAL HISTORY: weakness TECHNIQUE: Single frontal radiograph of the chest was obtained. Comparison: None available at the time of this dictation. FINDINGS: No lines and tubes are seen. The cardiomediastinal silhouette is normal. The lungs are clear. No evidence of pleural effusion or pneumothorax. IMPRESSION: No acute chest disease. ACT 112: Negative or not required by law. Electronically signed by: Alvarado Keith M.D. 03/04/2022 6:25 PM Dictated:03/04/221814 Transcribed: 03/04/221814 Hospital Course (1) GIB (gastrointestinal bleeding): (2) Acute blood loss anemia: (3) GAVE (gastric antral vascular ectasia): (4) Portal hypertensive gastropathy: (5) Thrombocytopenia: (6) Cirrhosis: Patient presenting from home with reports of generalized weakness and fatigue, bright red GI bleed Patient reports chronic anemia for the past 2 years intermittently requiring repeat blood transfusions. Last EGD on 01/29/2022 showing Gastric antral vascular ectasia with bleeding treated with argon plasma coagulation (APC), Portal hypertensive gastropathy with bleeding treated with argon plasma coagulation (APC). S/P 2 units PRBC 0n [facility] due to hemoglobin of 5.1. Hgb on admission 5.6 and platelet 52K Received a total of 3 units PRBC so far during the hospital stay ( 2 units last night and 1 unit this morning) Follows with Dr. Donovan with [facility] GI outpatient Gastro on board S/P EGD on 03/05 reveals bleeding diffusely from portal hypertensive gastropathy, with continuing blood loss. Multiple treatments with argon plasma coagulation have been ineffective in controlling the bleeding. GI recommended to transfer to tertiary care for TIPS procedure (or shunt) for bleeding control. Continue IV famotidine, IV Protonix and octreotide Called transfer line at [place] to discuss the case with the carton inspector Gastro Dr. Rich and Hospitalist Dr. Iniguez and the detention deputy As per Furniture Finisher Helper at [place] pt is not candidate for TIPS. Pt will need to get evaluate for liver transplant Case discussed with Dr. Blue that suggested to call [facility] because pt had procedure with [facility] in the past for higher level of care Continue monitor H/H and if hgb less than 7, will transfuse PRBC GI started him on clear liquid diet since pt is asking for food later I discussed the case with [facility] hospitalist Dr Wayne that agreed to accept the patient for transfer Continue monitor closely (7) Prolonged QT interval: Borderline, QTC 499 Will avoid QTC prolong med Continue monitor EKG (8) Hodgkin lymphoma: Diagnosed August 2021, completed chemotherapy on 02/25/2022 per patient Follows with Dr. Perez in [place] Continue prophylactic azithromycin and acyclovir (9) HIV (human immunodeficiency virus infection): Follows with Dr. Ramirez with [facility] Continue Dovato (10) Diabetes mellitus, type 2: Most recent Hba1c 5.5 Hold oral agents, utilize NovoLog per protocol while hospitalized Continue monitor BS (11) Hypertension: Continue to lisinopril due to borderline low BPs (12) DVT prophylaxis: SCDs due to GI bleeding Disposition Will transfer to Critical access hospital Total Time Total Time Spent Total Time Spent (In Minutes): 40minutes Discharge Plan Discharge Items Patient Disposition: Transfer Acute Care Hospital Reason For Visit: GI BLEED, ANEMIA Discharge Diagnosis: (1) GIB (gastrointestinal bleeding): (2) Acute blood loss anemia: (3) GAVE (gastric antral vascular ectasia): (4) Portal hypertensive gastropathy: (5) Thrombocytopenia: (6) Cirrhosis: Activity: Resume your previous activity Non-emergency contact: Primary Care Provider and Punch Operator Call non-emergency contact if: you have any medication questions and your symptoms worsen Follow-up/Referrals: Candida Estrella DO [Primary Care Provider] - Diet: Clear liquid Addtl Attending Provider Instructions: Transfer to Critical access hospital for higher level of care Accepting physician Dr. Ziadi Continue IV pantoprazole and Octreotide drip Continue monitor hemoglobin Pending Studies at Discharge: No Stand-Alone Forms: My [facility] Skilled Items Patient informed of condition?: Yes DNR: No Discharge Level of Care: Other Communicable Disease: No Discharge Prognosis: Stable Lines: Peripheral IV Urinary Catheter: No Medications and DC Order Prescriptions: Continued medical marijuana 1 dose PO UD PRN (Reason: Nausea) RF: 0 lisinopril 5 mg tablet 5 mg PO QAM RF: 0 metformin 500 mg tablet 500 mg PO QAM RF: 0 atorvastatin [Lipitor] 10 mg tablet 10 mg PO QPM RF: 0 sertraline [Zoloft] 100 mg tablet 100 mg PO QAM RF: 0 clindamycin phosphate 1 % swab 1 appln TOP DAILY PRN (Reason: flare up) RF: 0 clobetasol 0.05 % gel 1 appln TOP BID PRN (Reason: flare up) RF: 0 betamethasone valerate 0.1 % cream 1 appln TOP DAILY PRN (Reason: Nausea) RF: 0 clobetasol 0.05 % shampoo 1 appln TOP DAILY PRN (Reason: ..) RF: 0 Dovato 50-300 mg tablet 1 tab PO QAM RF: 0 pantoprazole [Protonix] 40 mg tablet,delayed release (DR/EC) 40 mg PO BID RF: 0 oxybutynin chloride 10 mg Tablet Extended Release 24hr 10 mg PO AMPM RF: 0 acyclovir 400 mg Tablet 400 mg PO BID RF: 0 albuterol sulfate 90 mcg/actuation Hfa Aerosol Inhaler 2 inh INHALATION QID PRN (Reason: SHORT OF BREATH) RF: 0 metformin 500 mg tablet 1,000 mg PO QPM RF: 0 gabapentin 600 mg tablet 600 mg PO TID RF: 0 ipratropium-albuterol 0.5 mg-3 mg(2.5 mg base)/3 mL solution for nebulization 0 ml INHALATION QAM RF: 0 ondansetron HCl 8 mg tablet 8 mg PO BID PRN (Reason: Nausea) RF: 0 ascorbic acid (vitamin C) [Vitamin C] 500 mg Tablet 500 mg PO DAILY RF: 0 folic acid 1 mg tablet 1 mg PO DAILY RF: 0 magnesium 250 mg Tablet 250 mg PO DAILY RF: 0 azithromycin 500 mg tablet 500 mg PO DAILY RF: 0 Discharge Orders: Discharge Order (Routine); Ordered 03/06/22 Ordered By: Nayana Paz Admission Data Admit Date/Time: 03/04/22 19:43 Attending Provider: Nayana Paz Admit Provider: Nayana Paz Primary Care Provider: Candida Estrella Other Providers: Griffin Wharton ; Santiago Cardenas Other Interventions: Discharge Summary Assessment (RN) Last Done: 03/07/22 01:01
== END 2022-03-07 01:35 | disposition short-term general hospital (02) | DRG 442 ==
LOC: ED 17:17 → 2S 19:43